=== PATIENT | female | born 1940 | race Caucasian/White ===

== ENCOUNTER → 2018-05-09 12:36 | Outpatient (CLI) | payer MEDICARE, SELFPAY | PROVIDERS: Family Provider Family Medicine; PCP Family Medicine; Visit Provider Family Medicine | DX: M81.0 Age-related osteoporosis without current pathological fracture (principal); Z78.0 Asymptomatic menopausal state; Z87.891 Personal history of nicotine dependence | CPT/HCPCS: 77080 ==

== ENCOUNTER → 2019-06-26 11:26 | Outpatient (CLI) | payer MEDICARE, SELFPAY ==
--- NOTE | 2019-06-26 | DI.RAD.S_ITS ---
PROCEDURE: XR CHEST 2V INDICATIONS: shortness of breath TECHNIQUE: 2 views of the chest were acquired. COMPARISON: None. FINDINGS: Surgical changes and devices: None. Lungs and pleura: Low lung volumes with scattered subsegmental atelectasis/scarring. . No pleural effusions or pneumothorax. Mediastinum: Mediastinal contours are normal. Heart size is normal. Bones and chest wall: No suspicious bony abnormalities. Lateral curvature of the spine. Soft tissues appear unremarkable. IMPRESSION: Low lung volumes with scattered subsegmental atelectasis/scarring. Dictated by: Igor Martinez M.D. on 06/26/2019 at 12:36 Approved by: Igor Martinez M.D. on 06/26/2019 at 12:36
== END ==
PROVIDERS: Family Provider Family Medicine; PCP Student in an Organized Health Care Education/Training Program; Referring Provider Student in an Organized Health Care Education/Training Program; Visit Provider Student in an Organized Health Care Education/Training Program
DX: R06.02 Shortness of breath (principal)
CPT/HCPCS: 71046

== ENCOUNTER → 2019-07-03 10:55 | Outpatient (CLI) | payer MEDICARE, SELFPAY ==
--- NOTE | 2019-07-03 | DI.ECHO.S_ITS ---
[facility] +---------+ : : [address] : : : : [id number] : : : : Phone: [phone] Echocardiogram Report + + :Name: BRAEDEN BARRIOS Study Date: 07/03/2019 Height: 191 in : :[facility] Weight: 61 lb : : Gender: Female BSA: 2.6 m2 : :: 1940 Age: 79 yrs BP: 165/98 mmHg: :Reason For Study: SYSTOLIC HEART FAILURE : :Ordering Physician: Sandro Mercado : :Gene Performed By: Linda Chin : :Referring: SANDRO MILLS : + + Interpretation Summary 1) Normal left ventricular size, thickness, and systolic function (EF 60-65%). 2) There are no obvious focal wall motion abnormalities noted but poor endocardial definition reduces the sensitivity for the detection of such. 3) Normal right ventricular size and function. 4) No significant valvular abnormalities. 5) No prior Echo available for comparison. Procedure: A two-dimensional transthoracic echocardiogram with color flow and Doppler was performed. There is no prior echocardiogram noted for this patient. The study quality was technically adequate. The patient was in normal sinus rhythm during the exam. Left Ventricle: The left ventricle is normal in size. There is normal left ventricular wall thickness. The ejection fraction is estimated to be 60-65%. Left ventricular systolic function is normal. There are no obvious focal wall motion abnormalities noted but poor endocardial definition reduces the sensitivity for the detection of such. Right Ventricle: The right ventricle is normal in size and function. Atria: The left atrial size is normal. Right atrial size is normal. Mitral Valve: The mitral valve is normal in structure and function. There is mild mitral annular calcification. There is trace mitral regurgitation. Aortic Valve: The aortic valve is normal in structure and function. There is no aortic valve stenosis. No aortic regurgitation is present. Tricuspid Valve: The tricuspid valve is normal in structure and function. There is a trace or physiologic amount of tricuspid regurgitation. Pulmonary artery pressures cannot be estimated because of the lack of a measurable TR jet velocity. Pulmonic Valve: The pulmonic valve is normal in structure and function. There is trace pulmonic regurgitation. Great Vessels: The aortic root is normal size. The dimensions of the ascending aorta are normal. The IVC is of normal diameter and collapses greater than 50% with a sniff. This suggests a low right atrial pressure of 3 mm Hg. Pericardium/ Pleura There is no pericardial effusion. There is no pleural effusion. MMode/2D Measurements & Calculations LVIDd: 4.3 cm LVOT diam: 2.0 cm LVIDs: 3.1 cm Ao root diam: 2.8 cm FS: 29.3 % asc Aorta Diam: 2.6 cm IVSd: 0.71 cm LVPWd: 1.0 cm LV mcgarry. diameter/BSA (cm/m^2): 1.7 LV sys. diameter/BSA (cm/m^2): 1.2 LA A2 area: 17.0 cm2 RA long axis: 5.2 cm LA A4 area: 12.9 cm2 RA area: 16.1 cm2 LA length (vol): 4.6 cm RA vol: 42.5 ml LA vol: 40.7 ml RA : 16.3 ml/m2 LA vol index: 15.6 ml/m2 IVC diam: 1.9 cm RVD1 (basal): 3.3 cm TAPSE: 2.0 cm Doppler Measurements & Calculations Ao V2 max: 146.4 cm/sec LVOT Max Asaf: 130.6 cm/sec Ao V2 mean: 97.6 cm/sec LV V1 max P.8 mmHg Ao max P.6 mmHg LV V1 VTI: 27.5 cm Ao mean P.5 mmHg LUCILLE(I,D): 2.7 cm2 Ao V2 VTI: 30.1 cm LUCILLE(V,D): 2.7 cm2 sev ratio: 0.91 LUCILLE indexed to BSA (cm^2/m^2): 1.1 MV E max asaf: 84.3 cm/sec PA V2 max: 121.2 cm/sec MV A max asaf: 91.3 cm/sec PA V2 mean: 80.8 cm/sec MV E/A: 0.92 PA mean P.0 mmHg Med Peak E' Asaf: 5.5 cm/sec PA pr(Accel): 27.6 mmHg E/E' med: 15.4 PA Accel Time: 0.14 sec Lat Peak E' Asaf: 8.3 cm/sec E/E' lat: 10.1 E/e' average: 12.8 MV dec time: 0.23 sec MV P1/2t: 66.5 msec MV P1/2t max asaf: 83.5 cm/sec SV(LVOT): 82.4 ml MVA(P1/2t): 3.3 cm2 Reading Physician:01:15 PM
== END ==
PROVIDERS: Family Provider Family Medicine; PCP Student in an Organized Health Care Education/Training Program; Referring Provider Internal Medicine Cardiovascular Disease; Visit Provider Internal Medicine Cardiovascular Disease
DX: I50.20 Unspecified systolic (congestive) heart failure (principal)
CPT/HCPCS: 93306

== ENCOUNTER → 2019-07-04 07:49 | Outpatient (CLI) | payer MEDICARE, SELFPAY ==
[2019-07-04 10:01] LABS: BUN Creatinine Ratio 26.8 (6-22); Blood Urea Nitrogen 26 mg/dL (7-17); Carbon Dioxide 28 mmol/L (22-32); Chloride 102 mmol/L (98-107); Estimated Glomerular Filt Rate 55.3 mL/min (>60); Glucose 96 mg/dL (80-110); HEMOLYSIS < 15 (0-50); Potassium 4.1 mmol/L (3.4-5.1); Sodium 138 mmol/L (137-145)
== END ==
PROVIDERS: Family Provider Family Medicine; PCP Student in an Organized Health Care Education/Training Program; Referring Provider Internal Medicine Cardiovascular Disease; Visit Provider Internal Medicine Cardiovascular Disease
DX: I10 Essential (primary) hypertension (principal); I50.20 Unspecified systolic (congestive) heart failure
CPT/HCPCS: 36415; 80048

== ENCOUNTER → 2019-10-16 11:51 | Outpatient (CLI) | payer MEDICARE, SELFPAY ==
[2019-10-16 12:49] LABS: Add Manual Diff / Slide Review NO; Basophils Absolute Auto 100 /uL (0-100); Basophils Percent Auto 0.8 % (0-2); Eosinophils Absolute Auto 100 /uL (0-450); Eosinophils Percent Auto 0.8 % (2-4); Hematocrit 28.3 % (36-46); Hemoglobin 9.1 g/dL (12.0-16.0); Lymphocytes Absolute Auto 1800 /uL (1100-4500); Lymphocytes Percent Auto 25.8 % (25-40); Mean Corpuscular HGB Conc 32.1 % (30-36); Mean Corpuscular Hemoglobin 20.9 PG (26-34); Mean Corpuscular Volume 65.3 fL (80-100); Monocytes Absolute Auto 600 /uL (0-900); Monocytes Percent Auto 8.2 % (3-14); Neutrophils Absolute Auto 4400 /uL (1500-7000); Neutrophils Percent Auto 64.4 % (50-75); Platelet Count 488 X10^3/uL (150-400); Red Blood Cell Count 4.34 X10^6/uL (4.0-5.2); Red Cell Distribution Width 18.5 % (11.6-14.8); White Blood Cell Count 6.9 X10^3/uL (4.5-11.0)
[2019-10-16 13:06] LABS: BUN Creatinine Ratio 23.2 (6-22); Blood Urea Nitrogen 23 mg/dL (7-17); Carbon Dioxide 25 mmol/L (22-32); Chloride 102 mmol/L (98-107); Cholesterol 246 mg/dL (140-199); Glucose 106 mg/dL (80-110); HEMOLYSIS < 15 (0-50); Potassium 4.6 mmol/L (3.4-5.1); Sodium 136 mmol/L (137-145); Triglycerides 123 mg/dL (35-150)
[2019-10-16 13:09] LABS: Anisocytosis 2+; Poikilocytosis 2+
[2019-10-16 13:14] LABS: HDL Cholesterol 98 mg/dL (40-60); LDL Cholesterol Calculated 123 mg/dL (<100)
== END ==
PROVIDERS: Family Provider Family Medicine; PCP Student in an Organized Health Care Education/Training Program; Referring Provider Internal Medicine Cardiovascular Disease; Visit Provider Internal Medicine Cardiovascular Disease
DX: I10 Essential (primary) hypertension (principal)
CPT/HCPCS: 36415; 80048; 80061; 85025

== ENCOUNTER → 2019-11-13 13:30 | Oncology outpatient (ONC) | payer MEDICARE, SELFPAY ==
[2019-10-16 14:10] VITALS: BP 148/77; PULSE 84; RESP 16; TEMP 36.7; O2SAT 96
[2019-10-16] MEDS: IRON SUCROSE 200 MG in SODIUM CHLORIDE 0.9% 100 ML 220 ML IV (14:20)
--- NOTE | 2019-10-16 15:41 | PC.NURSE ---
FIRST TIME IRON INFUSION: PATIENT REMAINED WITHOUT S/S OF REACTION FOR 30 MINUTES POST COMPLETION OF TRANSFUSION. SHE WAS INSTRUCTED TO CALL 911 IF S/S OF REACTION (EXPLAINED TO HER ANY SWELLING OF MOUTH, FACE, NECK, CHEST PAIN, SOB, WHEEZING, BACK PAIN, PRURITIS). PATIENT VOICED UNDERSTANDING.
[2019-10-23 13:44] VITALS: BP 151/84; PULSE 90; RESP 18; TEMP 36.7; O2SAT 99
[2019-10-23] MEDS: IRON SUCROSE 200 MG in SODIUM CHLORIDE 0.9% 100 ML 220 ML IV (13:52)
[2019-10-30] MEDS: IRON SUCROSE 200 MG in SODIUM CHLORIDE 0.9% 100 ML 220 ML IV (13:48)
[2019-10-30 13:59] VITALS: BP 141/73; PULSE 84; RESP 18; TEMP 36.7; O2SAT 97
[2019-11-06] MEDS: IRON SUCROSE 200 MG in SODIUM CHLORIDE 0.9% 100 ML 220 ML IV (13:58)
[2019-11-06 14:08] VITALS: BP 158/74; PULSE 78; RESP 16; TEMP 37.1; O2SAT 98
[2019-11-13] MEDS: IRON SUCROSE 200 MG in SODIUM CHLORIDE 0.9% 100 ML 220 ML IV (13:43)
== END ==
PROVIDERS: Family Provider Family Medicine; PCP Student in an Organized Health Care Education/Training Program; Referring Provider Student in an Organized Health Care Education/Training Program; Visit Provider Student in an Organized Health Care Education/Training Program
DX: D50.9 Iron deficiency anemia, unspecified (principal)
CPT/HCPCS: 96365; J1756

== ENCOUNTER → 2020-01-27 09:52 | Outpatient (CLI) | payer MEDICARE, SELFPAY ==
[2020-01-27 10:37] LABS: Add Manual Diff / Slide Review NO; Basophils Absolute Auto 0 /uL (0-100); Basophils Percent Auto 0.6 % (0-2); Eosinophils Absolute Auto 100 /uL (0-450); Eosinophils Percent Auto 2.1 % (2-4); Hematocrit 39.3 % (36-46); Hemoglobin 13.2 g/dL (12.0-16.0); Lymphocytes Absolute Auto 2100 /uL (1100-4500); Lymphocytes Percent Auto 31.4 % (25-40); Mean Corpuscular HGB Conc 33.7 % (30-36); Mean Corpuscular Hemoglobin 26.7 PG (26-34); Mean Corpuscular Volume 79.4 fL (80-100); Monocytes Absolute Auto 700 /uL (0-900); Monocytes Percent Auto 10.4 % (3-14); Neutrophils Absolute Auto 3800 /uL (1500-7000); Neutrophils Percent Auto 55.5 % (50-75); Platelet Count 336 X10^3/uL (150-400); Red Blood Cell Count 4.95 X10^6/uL (4.0-5.2); Red Cell Distribution Width 21.1 % (11.6-14.8); White Blood Cell Count 6.9 X10^3/uL (4.5-11.0)
[2020-01-27 10:50] LABS: Anisocytosis 2+
[2020-01-27 10:57] LABS: BUN Creatinine Ratio 20.4 (6-22); Blood Urea Nitrogen 22 mg/dL (7-17); Calcium 10.1 mg/dL (8.4-10.2); Carbon Dioxide 32 mmol/L (22-32); Chloride 102 mmol/L (98-107); Cholesterol 242 mg/dL (140-199); Estimated Glomerular Filt Rate 48.7 mL/min (>60); Glucose 99 mg/dL (80-110); HDL Cholesterol 70 mg/dL (40-60); HEMOLYSIS < 15 (0-50); LDL Cholesterol Calculated 123 mg/dL (<100); Potassium 4.4 mmol/L (3.4-5.1); Sodium 138 mmol/L (137-145); Triglycerides 243 mg/dL (35-150)
== END ==
PROVIDERS: Family Provider Family Medicine; PCP Student in an Organized Health Care Education/Training Program; Referring Provider Internal Medicine Cardiovascular Disease; Visit Provider Internal Medicine Cardiovascular Disease
DX: I10 Essential (primary) hypertension (principal)
CPT/HCPCS: 36415; 80048; 80061; 85025

== ENCOUNTER → 2020-03-02 08:18 | Outpatient (CLI) | payer MEDICARE, SELFPAY ==
[2020-03-02 10:37] LABS: COVID19 -Nasal RAPID Negative (Negative)
== END ==
PROVIDERS: PCP Student in an Organized Health Care Education/Training Program; Visit Provider Family Medicine Sleep Medicine
DX: Z11.59 Encounter for screening for other viral diseases (principal)
CPT/HCPCS: 87635; C9803

== ENCOUNTER → 2020-05-08 09:14 | Outpatient (CLI) | payer MEDICARE, SELFPAY ==
[2020-05-08 11:04] LABS: BUN Creatinine Ratio 12.3 (6-22); Blood Urea Nitrogen 10 mg/dL (7-17); Calcium 9.8 mg/dL (8.4-10.2); Carbon Dioxide 27 mmol/L (22-32); Chloride 104 mmol/L (98-107); Estimated Glomerular Filt Rate > 60.0 mL/min (>60); Glucose 99 mg/dL (80-110); HEMOLYSIS < 15 (0-50); Potassium 4.6 mmol/L (3.4-5.1); Sodium 139 mmol/L (137-145)
== END ==
PROVIDERS: PCP Student in an Organized Health Care Education/Training Program; Referring Provider Internal Medicine Cardiovascular Disease; Visit Provider Internal Medicine Cardiovascular Disease
DX: I10 Essential (primary) hypertension (principal)
CPT/HCPCS: 36415; 80048

== ENCOUNTER → 2023-10-16 08:07 | Outpatient (CLI) | payer MEDICARE, SELFPAY ==
--- NOTE | 2023-10-16 08:10 | DI.US.S_ITS ---
PROCEDURE: US SOFT TISSUE HEAD AND NECK INDICATIONS: RIGHT CLAVICLE MASS TECHNIQUE: Ultrasound the thyroid was obtained COMPARISON: None. FINDINGS: Right and left lobes of thyroid measure 4.3 x 1.8 x 2.6 cm and 4.1 x 1.6 x 1.2 cm respectively. Isthmus measures 0.3 cm in thickness. Bilateral thyroid nodules noted. Normal small lymph node adjacent to the right lobe of the thyroid noted. In the right mid thyroid, nodule 1. dominant nodule measures 2.2 x 1.5 x 2.3 cm and is wider than tall. Nodules predominantly solid, hyperechoic with smooth margins and no echogenic foci. Total points 3. Category 3. The left lower thyroid, nodule 2. Measures 0.4 x 0.4 x 0.4 cm. Wider than tall, solid and cystic, irregular margins and no echogenic foci. Total points 5. Category 4. In the left thyroid nodule 3. Measures 0.7 x 0.6 x 0.6 cm. Wider than tall, solid, isoechoic, lobulated margins and punctate echogenic foci. Total points 8. Category 5. In the left lower thyroid, nodule 4. Measures 1.0 x 1.0 x 1.4 cm. Wider than tall, predominantly solid, isoechoic, irregular margins and no echogenic foci. Total points 5. Category 4. IMPRESSION: Bilateral thyroid nodules. ACR guidelines recommend follow-up without FNA given nodule sizes Approved by: Ken Bonner M.D. on 10/16/2023 at 16:10
== END ==
PROVIDERS: PCP Family Medicine; Referring Provider Family Medicine; Visit Provider Family Medicine
DX: E04.2 Nontoxic multinodular goiter (principal); M79.89 Other specified soft tissue disorders
CPT/HCPCS: 76536

== ENCOUNTER → 2024-01-09 08:20 | Outpatient (CLI) | payer MEDICARE, SELFPAY ==
--- NOTE | 2024-01-09 | DI.US.S_ITS ---
PROCEDURE: US EXTREMITY NONVASC LOWER RT INDICATIONS: MASS BEHIND RIGHT KNEE TECHNIQUE: Real-time scanning was performed of the right knee, with image documentation. COMPARISON: None. FINDINGS: No significant sonographic abnormality is seen posterior to the right knee. No solid mass. No fluid collection. IMPRESSION: No significant sonographic abnormality at the area of clinical concern. MRI or CT could be performed for further evaluation if there is continued clinical concern. Approved by: Abimael Connors M.D. on 01/09/2024 at 21:00
== END ==
PROVIDERS: Family Provider Family Medicine; PCP Family Medicine; Referring Provider Family Medicine; Visit Provider Family Medicine
DX: R22.41 Localized swelling, mass and lump, right lower limb (principal)
CPT/HCPCS: 76882

== ENCOUNTER 2024-02-28 13:00 | Outpatient (RCR) | payer MEDICARE, SELFPAY ==
--- NOTE | 2024-01-17 11:49 | PT.OPPOC ---
Physical, Occupational & Speech Therapy At [facility] Current Diagnoses Unilateral primary osteoarthritis, right knee (01/17/24) Radiculopathy, lumbar region (01/17/24) Visit Care Team Role Provider Type Zia Zarco MD Attending Provider Physician Family Provider Primary Care Provider Referring Provider Specialty: Family Practice Address: [facility] [place], [facility] Email: [email or web address] Plan Of Care PT-OP-B Current Condition Start: 01/17/24 08:16 Freq: Status: Active Protocol: Document 01/17/24 09:46 MB (Rec: 01/17/24 10:34 MB [id number]) Current Condition History of Current Condition Onset Date A couple of weeks ago Current Complaints Left SI, hip and thigh pain History of Current Condition Pt states that she had a sudden onset of left sided pain that started a couple of weeks ago. Pt woke up with a sharp pain and called the doctor. She sleeps on her left side without pillow support. PMH includes sleep apnea and CHF. Pt had PT in the past for right knee d/t degeneration and clicking. History of right meniscal repair and painful lump posterior right knee that she was told is not a Lang's cyst. Pt is not keen on doctors and has not always followed up about things. [facility] and she has stopped d/t pain. She was trying to build up walking distance around [facility] and a couple of days later was when the pain came on. Pt lives by herself and is I. She does not have steps. Pt has had two falls in the past four years. She hurt her right ribs and bruised left face in the falls. She was walking outside. She does not have a cane or walker. She thinks she was dehydrated. Questionnaires are not pharmaceutical representative of her issues. Pt has most pain in the mornings when she goes to get OOB. She is sleeping on her right side without a pillow. Pt reports burning in anterior left thigh. Treatment Goals Patient/Caregiver Goals To decrease pain, especially in the mornings. PT-OP-T Assessment and Plan Start: 01/17/24 08:16 Freq: Status: Active Protocol: Document 01/17/24 09:46 MB (Rec: 01/17/24 10:34 MB [id number]) Physical Therapy Assessment Rehab Potential Rehabilitation Potential Fair Evaluation Complexity Number of Personal Factors/Comorbidities 1-2 Number of Body Systems Impaired 1-2 Clinical Presentation at Evaluation Evolving Impairments Impairments Activity Tolerance,Balance, Coordination,Functional Activities,Functional Mobility ,Gait,Pain,Posture,ROM, Sensation,Soft Tissue Mobility ,Strength,Transfers Goals 3 Impairment Lack of HEP Scribing Machine Operator Goal (LTG) Pt will perform progressive HEP with I include pelvic realignment, flexibility, postural, strengthening and balance exercises to improve pain and strength. LTG Duration 8 weeks 2 Impairment Evidence of imbalance Scribing Machine Operator Goal (LTG) Pt will perform WNLs on FGA to decrease fall risk. LTG Duration 8 weeks 1 Impairment Poor gait Scribing Machine Operator Goal (LTG) Pt will gait train at least 1400 feet in 6 minutes to improve community ambulation and reflect less pain with ambulation. LTG Duration 8 weeks Assessment Summary Assessment Pt is an 84 y/o female presenting with spinal and right knee changes reporting sudden onset of left sided SI area to thigh pain and burning one morning a couple of weeks ago. Pt has degenerative changes in right knee d/t meniscal tear around December 26, 2000 that she states was not convenient to treat at the time and she has had trouble with her right kn'see since that time. She has knee flexion contracture, increased Q angle and lump posterior right knee that she states Lang's cyst was r/o. Pt presents with pelvic obliquities. She would like to return to functional exercises at the [facility] 3x/wk and admits to tending to bear pain rather than follow-up for care. She is agreeable to PT participation 2x/wk for 6 weeks. She will benefit from PT to improve pelvic alignment, flexibility, balance, strength and gait. Barriers include orthopedic changes. Ed pt that no pain no gain is NOT the motto of this PT course but rather convincing body to adapt to small changes and learning better body awareness. Physical Therapy Plan Frequency and Duration Frequency of Treatment 2x/Week Duration of treatment (weeks) 8 Plan of Care Start Date 01/17/24 Plan of Care End Date 03/18/24 Therapeutic Interventions Therapeutic Interventions Balance Training,Canalithic Repositioning,Coordination Training,Gait Training,Home Exercise Program,Joint Mobilizations,Manual Therapy, Neuromuscular Re-education, Patient/Caregiver Education, Self-Care/Home Management,Soft Tissue Mobilization,Taping, Therapeutic Activities, Therapeutic Exercises Modalities Electric Stimulation,Hot Packs ,Ultrasound Next Visit Focus/Plan Next Note Type Treatment Note Next Visit Plan Review pelvic realignment exercises, initiate flexibility exercises such as yeimy stretch, hamstring stretch with AP and hip rotator stretch Manual work Progressive strengthening including gentle core awareness and progression in hook lying, gentle leg strengthening and balance strengthening, FGA and 6MWT Plan of Care Dates Plan of Care Start Date 01/17/24 Plan of Care End Date 03/18/24 Electronically Signed by: Maria Alejandra aHnkins, PT 01/17/24 9332 If you are in agreement with this Plan of Care, please return a signed and dated copy. I have reviewed this Plan of Care and certify that the skilled therapy services above are required to meet the patient?s needs. Physician Signature Date Printed Name and Credentials Clinical Instructor Signature Printed Name and Credentials
--- NOTE | 2024-01-17 11:49 | PT.OIE ---
Current Diagnoses Unilateral primary osteoarthritis, right knee (01/17/24) Radiculopathy, lumbar region (01/17/24) Past Medical History (Last Updated 02/02/21 @ 14:08 by BELEN Whitfield) Hypertension Insomnia with sleep apnea, unspecified Iron deficiency anemia chick sexer associated with adverse incidents (~09/28/20) Obstructive sleep apnea Systolic heart failure Visit Care Team Role Provider Type Zia Zarco MD Attending Provider Physician Family Provider Primary Care Provider Referring Provider Specialty: [facility] Address: [facility] [place], [address] Email: [email or web address] Initial Evaluation PT-OP-A Visit Information Start: 01/17/24 08:16 Freq: Status: Active Protocol: Document 01/17/24 09:46 MB (Rec: 01/17/24 10:34 MB [id number]) Out-Patient Physical Therapy Visit Information Visit Information Visit Type Initial Evaluation Visit Note Medicare AARP Progress note by 02/17/24 Visit Start Time 09:46 Visit Stop Time 10:26 Visit Number 1 Number of GRAINING PRESS OPERATOR Visits 0 Evaluation Information Evaluation Date 01/17/24 PT-OP-B Current Condition Start: 01/17/24 08:16 Freq: Status: Active Protocol: Document 01/17/24 09:46 MB (Rec: 01/17/24 10:34 MB [id number]) Current Condition History of Current Condition Onset Date A couple of weeks ago Current Complaints Left SI, hip and thigh pain History of Current Condition Pt states that she had a sudden onset of left sided pain that started a couple of weeks ago. Pt woke up with a sharp pain and called the doctor. She sleeps on her left side without pillow support. PMH includes sleep apnea and CHF. Pt had PT in the past for right knee d/t degeneration and clicking. History of right meniscal repair and painful lump posterior right knee that she was told is not a Lang's cyst. Pt is not keen on doctors and has not always followed up about things. [facility] and she has stopped d/t pain. She was trying to build up walking distance around [facility] and a couple of days later was when the pain came on. Pt lives by herself and is I. She does not have steps. Pt has had two falls in the past four years. She hurt her right ribs and bruised left face in the falls. She was walking outside. She does not have a cane or walker. She thinks she was dehydrated. Questionnaires are not passenger service representative of her issues. Pt has most pain in the mornings when she goes to get OOB. She is sleeping on her right side without a pillow. Pt reports burning in anterior left thigh. Treatment Goals Patient/Caregiver Goals To decrease pain, especially in the mornings. PT-OP-C Subjective Start: 01/17/24 08:16 Freq: Status: Active Protocol: Document 01/17/24 09:46 MB (Rec: 01/17/24 10:34 MB [id number]) OP-PT Subjective Patient Comments Patient Comments See history of current condition. PT-OP-G Mobility & Gait Start: 01/17/24 08:16 Freq: Status: Active Protocol: Document 01/17/24 09:46 MB (Rec: 01/17/24 10:34 MB [id number]) OP Gait Assessment Comments Gait Comments Lower limb changes on the right with increased QL, supinated foot with increased Abran angle and wide DEJA PT-OP-J Posture/Palpation/Skin Start: 01/17/24 08:16 Freq: Status: Active Protocol: Document 01/17/24 09:46 MB (Rec: 01/17/24 10:34 MB [id number]) Posture Evaluation Comments Posture Comments Standing posture with shoes donned: severe foward head and rounded shoulders with right tragus 1.5 in front of right AC joint, severe Dowager's hump, mild right thoracic convexity and overall increased thoracic kyphosis, right iliac crest is lower than the left and right knee is medially deviated/increased QL and pt reports meniscal repair, pt tends to keep right foot ER and mildly in front of left, supinated right rearfoot. Right leg functionally longer than the left in standing. Standing flexion with fingers 2 from the floor, hamstrings tight and knees bent mildly and reports right knee pain, right arm seems longer to her and reaches closer to the ground. Standing extension to 10 deg and dull ache left side and prefers flexion Standing SB B severely limited grossly 10 deg Pt supine: anteriorly rotated left innominate and stiff SI joint compared to right PT-OP-K Range of Motion Start: 01/17/24 08:16 Freq: Status: Active Protocol: Document 01/17/24 09:46 MB (Rec: 01/17/24 10:34 MB [id number]) Knee Goniometric Range of Motion Knee ROM Limitations Comments Right knee does not rest flat and presents with flexion lacking 20 deg extension passively and incresaed Q angle 15 deg PT-OP-M Strength Start: 01/17/24 08:16 Freq: Status: Active Protocol: Document 01/17/24 09:46 MB (Rec: 01/17/24 10:34 MB [id number]) Hip Strength Hip Manual Muscle Testing Left Flexion (L2) 4+ Good+ Abduction 4 Good Right Flexion (L2) 3+ Fair+ Abduction 3+ Fair+ Knee Strength Knee Manual Muscle Testing Left Flexion (S2) 4+ Good+ Extension (L3) 5 Normal Right Flexion (S2) 4 Good Extension (L3) 4+ Good+ Ankle/Foot Strength Ankle and Foot Manual Muscle Testing Bilateral Dorsiflexion (L4) 5 Normal Toe Strength Toe Manual Muscle Testing Left Great Toe Extension 5 Normal Right Great Toe Extension 5 Normal PT-OP-Q Treatments Start: 01/17/24 08:16 Freq: Status: Active Protocol: Document 01/17/24 09:46 MB (Rec: 01/17/24 10:34 MB [id number]) Therapeutic Exercises Supine Exercises Pelvic realignment exercises Supine Exercise Name HEP Side bilateral Equipment Used Blue ball Reps/Minutes 5 reps, 3 sec hold all exercises in order Comments Feet together ball squeeze, knee opp ankle iso, thigh press down iso Self-Care/Home Management Treatment Education Patient Education Body Mechanics,Home Exercise Program,Joint Protection,Pain Management,Posture Other Education Benefits of heat, log rolling, pillow between arms and legs for side sleeping, rocking knees before getting OOB PT-OP-T Assessment and Plan Start: 01/17/24 08:16 Freq: Status: Active Protocol: Document 01/17/24 09:46 MB (Rec: 01/17/24 10:34 MB [id number]) Physical Therapy Assessment Rehab Potential Rehabilitation Potential Fair Evaluation Complexity Number of Personal Factors/Comorbidities 1-2 Number of Body Systems Impaired 1-2 Clinical Presentation at Evaluation Evolving Impairments Impairments Activity Tolerance,Balance, Coordination,Functional Activities,Functional Mobility ,Gait,Pain,Posture,ROM, Sensation,Soft Tissue Mobility ,Strength,Transfers Goals 3 Impairment Lack of HEP Director Of Operations Support Goal (LTG) Pt will perform progressive HEP with I include pelvic realignment, flexibility, postural, strengthening and balance exercises to improve pain and strength. LTG Duration 8 weeks 2 Impairment Evidence of imbalance Fci Goal (LTG) Pt will perform WNLs on FGA to decrease fall risk. LTG Duration 8 weeks 1 Impairment Poor gait Fci Goal (LTG) Pt will gait train at least 1400 feet in 6 minutes to improve community ambulation and reflect less pain with ambulation. LTG Duration 8 weeks Assessment Summary Assessment Pt is an 84 y/o female presenting with spinal and right knee changes reporting sudden onset of left sided SI area to thigh pain and burning one morning a couple of weeks ago. Pt has degenerative changes in right knee d/t meniscal tear around December 26, 2000 that she states was not convenient to treat at the time and she has had trouble with her right kn'see since that time. She has knee flexion contracture, increased Q angle and lump posterior right knee that she states Lang's cyst was r/o. Pt presents with pelvic obliquities. She would like to return to functional exercises at the [facility] 3x/wk and admits to tending to bear pain rather than follow-up for care. She is agreeable to PT participation 2x/wk for 6 weeks. She will benefit from PT to improve pelvic alignment, flexibility, balance, strength and gait. Barriers include orthopedic changes. Ed pt that no pain no gain is NOT the motto of this PT course but rather convincing body to adapt to small changes and learning better body awareness. Physical Therapy Plan Frequency and Duration Frequency of Treatment 2x/Week Duration of treatment (weeks) 8 Plan of Care Start Date 01/17/24 Plan of Care End Date 03/18/24 Therapeutic Interventions Therapeutic Interventions Balance Training,Canalithic Repositioning,Coordination Training,Gait Training,Home Exercise Program,Joint Mobilizations,Manual Therapy, Neuromuscular Re-education, Patient/Caregiver Education, Self-Care/Home Management,Soft Tissue Mobilization,Taping, Therapeutic Activities, Therapeutic Exercises Modalities Electric Stimulation,Hot Packs ,Ultrasound Next Visit Focus/Plan Next Note Type Treatment Note Next Visit Plan Review pelvic realignment exercises, initiate flexibility exercises such as yeimy stretch, hamstring stretch with AP and hip rotator stretch Manual work Progressive strengthening including gentle core awareness and progression in hook lying, gentle leg strengthening and balance strengthening, FGA and 6MWT
--- NOTE | 2024-01-23 08:13 | PT.OTN ---
Current Diagnoses Unilateral primary osteoarthritis, right knee (01/23/24) Radiculopathy, lumbar region (01/23/24) Physical Therapy Treatment Note PT-OP-A Visit Information Start: 01/17/24 08:16 Freq: Status: Active Protocol: Document 01/23/24 07:28 MB (Rec: 01/23/24 08:13 MB [id number]) Out-Patient Physical Therapy Visit Information Visit Information Visit Type Treatment Note Visit Note [facility] Progress note by 02/17/24 Visit Start Time 07:28 Visit Stop Time 08:08 Visit Number 2 Number of RETIREMENT PLAN SPECIALIST Visits 0 Evaluation Information Evaluation Date 01/17/24 PT-OP-B Current Condition Start: 01/17/24 08:16 Freq: Status: Active Protocol: Document 01/17/24 09:46 MB (Rec: 01/17/24 10:34 MB [id number]) Current Condition History of Current Condition Onset Date A couple of weeks ago Current Complaints Left SI, hip and thigh pain History of Current Condition Pt states that she had a sudden onset of left sided pain that started a couple of weeks ago. Pt woke up with a sharp pain and called the doctor. She sleeps on her left side without pillow support. PMH includes sleep apnea and CHF. Pt had PT in the past for right knee d/t degeneration and clicking. History of right meniscal repair and painful lump posterior right knee that she was told is not a Lang's cyst. Pt is not keen on doctors and has not always followed up about things. She is doing functional exercises at the [facility] 3x/wk and she has stopped d/t pain. She was trying to build up walking distance around [facility] and a couple of days later was when the pain came on. Pt lives by herself and is I. She does not have steps. Pt has had two falls in the past four years. She hurt her right ribs and bruised left face in the falls. She was walking outside. She does not have a cane or walker. She thinks she was dehydrated. Questionnaires are not financial foundations representative of her issues. Pt has most pain in the mornings when she goes to get OOB. She is sleeping on her right side without a pillow. Pt reports burning in anterior left thigh. Treatment Goals Patient/Caregiver Goals To decrease pain, especially in the mornings. PT-OP-C Subjective Start: 01/17/24 08:16 Freq: Status: Active Protocol: Document 01/23/24 07:28 MB (Rec: 01/23/24 08:13 MB [id number]) OP-PT Subjective Patient Comments Patient Comments Pt states that she started sleeping on her back with a pillow and is moving her legs before getting OOB and she is tad bit better in the mornings . Pain in the day is much better. Pelvic realignment exercises are okay. PT-OP-G Mobility & Gait Start: 01/17/24 08:16 Freq: Status: Active Protocol: Document 01/17/24 09:46 MB (Rec: 01/17/24 10:34 MB [id number]) OP Gait Assessment Comments Gait Comments Lower limb changes on the right with increased QL, supinated foot with increased Abran angle and wide DEJA PT-OP-J Posture/Palpation/Skin Start: 01/17/24 08:16 Freq: Status: Active Protocol: Document 01/17/24 09:46 MB (Rec: 01/17/24 10:34 MB [id number]) Posture Evaluation Comments Posture Comments Standing posture with shoes donned: severe foward head and rounded shoulders with right tragus 1.5 in front of right AC joint, severe Dowager's hump, mild right thoracic convexity and overall increased thoracic kyphosis, right iliac crest is lower than the left and right knee is medially deviated/increased QL and pt reports meniscal repair, pt tends to keep right foot ER and mildly in front of left, supinated right rearfoot. Right leg functionally longer than the left in standing. Standing flexion with fingers 2 from the floor, hamstrings tight and knees bent mildly and reports right knee pain, right arm seems longer to her and reaches closer to the ground. Standing extension to 10 deg and dull ache left side and prefers flexion Standing SB B severely limited grossly 10 deg Pt supine: anteriorly rotated left innominate and stiff SI joint compared to right PT-OP-K Range of Motion Start: 01/17/24 08:16 Freq: Status: Active Protocol: Document 01/17/24 09:46 MB (Rec: 01/17/24 10:34 MB [id number]) Knee Goniometric Range of Motion Knee ROM Limitations Comments Right knee does not rest flat and presents with flexion lacking 20 deg extension passively and incresaed Q angle 15 deg PT-OP-M Strength Start: 01/17/24 08:16 Freq: Status: Active Protocol: Document 01/17/24 09:46 MB (Rec: 01/17/24 10:34 MB [id number]) Hip Strength Hip Manual Muscle Testing Left Flexion (L2) 4+ Good+ Abduction 4 Good Right Flexion (L2) 3+ Fair+ Abduction 3+ Fair+ Knee Strength Knee Manual Muscle Testing Left Flexion (S2) 4+ Good+ Extension (L3) 5 Normal Right Flexion (S2) 4 Good Extension (L3) 4+ Good+ Ankle/Foot Strength Ankle and Foot Manual Muscle Testing Bilateral Dorsiflexion (L4) 5 Normal Toe Strength Toe Manual Muscle Testing Left Great Toe Extension 5 Normal Right Great Toe Extension 5 Normal PT-OP-Q Treatments Start: 01/17/24 08:16 Freq: Status: Active Protocol: Document 01/23/24 07:28 MB (Rec: 01/23/24 08:13 MB [id number]) Therapeutic Exercises Supine Exercises Log rolling Supine Exercise Name HEP Comments Con't to ed and practice as pt tends not to perform Hamstring stretch with AP Supine Exercise Name HEP Side bilateral Reps/Minutes 30 APs Comments Towel behind thigh Asher stretch Supine Exercise Name HEP Side bilateral Equipment Used Towel behind knee that is at chest, ed can use pillow under hips Reps/Minutes 30-45 sec hold Comments Opposite knee to chest Pelvic realignment exercises Supine Exercise Name HEP Side bilateral Equipment Used Blue ball Reps/Minutes 5 reps, 3 sec hold all exercises in order Comments Feet together ball squeeze, knee opp ankle iso, thigh press down iso Manual Therapy Treatment Consent Patient gave verbal consent for manual Yes treatment Other Other Manual Treatments Pt supine with head and legs supported: STM and positional release B PFs, hamstrings, TFL , hip rotators and QL PT-OP-T Assessment and Plan Start: 01/17/24 08:16 Freq: Status: Active Protocol: Document 01/23/24 07:28 MB (Rec: 01/23/24 08:13 MB [id number]) Physical Therapy Assessment Rehab Potential Rehabilitation Potential Fair Evaluation Complexity Number of Personal Factors/Comorbidities 1-2 Number of Body Systems Impaired 1-2 Clinical Presentation at Evaluation Evolving Impairments Impairments Activity Tolerance,Balance, Coordination,Functional Activities,Functional Mobility ,Gait,Pain,Posture,ROM, Sensation,Soft Tissue Mobility ,Strength,Transfers Goals 3 Impairment Lack of HEP Hasher Operator Goal (LTG) Pt will perform progressive HEP with I include pelvic realignment, flexibility, postural, strengthening and balance exercises to improve pain and strength. LTG Duration 8 weeks 2 Impairment Evidence of imbalance [facility] Goal (LTG) Pt will perform WNLs on FGA to decrease fall risk. LTG Duration 8 weeks 1 Impairment Poor gait [facility] Goal (LTG) Pt will gait train at least 1400 feet in 6 minutes to improve community ambulation and reflect less pain with ambulation. LTG Duration 8 weeks Assessment Summary Assessment Progressed gentle flexibility and manual work today. Recommend review asher stretch and hamstring with AP next treatment session and add hip rotator stretch. Ongoing manual work and gentle core, hip and balance progression. Right knee has a lot of changes. Physical Therapy Plan Frequency and Duration Frequency of Treatment 2x/Week Duration of treatment (weeks) 8 Plan of Care Start Date 01/17/24 Plan of Care End Date 03/18/24 Therapeutic Interventions Therapeutic Interventions Balance Training,Canalithic Repositioning,Coordination Training,Gait Training,Home Exercise Program,Joint Mobilizations,Manual Therapy, Neuromuscular Re-education, Patient/Caregiver Education, Self-Care/Home Management,Soft Tissue Mobilization,Taping, Therapeutic Activities, Therapeutic Exercises Modalities Electric Stimulation,Hot Packs ,Ultrasound Next Visit Focus/Plan Next Note Type Treatment Note Next Visit Plan Hip rotator stretch for HEP Manual work Progressive strengthening including gentle core awareness and progression in hook lying, gentle leg strengthening and balance strengthening, FGA and 6MWT
--- NOTE | 2024-01-26 16:44 | PT.OTN ---
Current Diagnoses Unilateral primary osteoarthritis, right knee (01/26/24) Radiculopathy, lumbar region (01/26/24) Physical Therapy Treatment Note PT-OP-A Visit Information Start: 01/17/24 08:16 Freq: Status: Active Protocol: Document 01/26/24 12:38 AB (Rec: 01/26/24 14:27 AB [id number]) Out-Patient Physical Therapy Visit Information Visit Information Visit Type Treatment Note Visit Note Medicare AARP Progress note by 02/17/24 Visit Start Time 13:02 Visit Stop Time 13:48 Visit Number 3 Number of DRESS CAP MAKER Visits 1 Evaluation Information Evaluation Date 01/17/24 PT-OP-B Current Condition Start: 01/17/24 08:16 Freq: Status: Active Protocol: Document 01/17/24 09:46 MB (Rec: 01/17/24 10:34 MB [id number]) Current Condition History of Current Condition Onset Date A couple of weeks ago Current Complaints Left SI, hip and thigh pain History of Current Condition Pt states that she had a sudden onset of left sided pain that started a couple of weeks ago. Pt woke up with a sharp pain and called the doctor. She sleeps on her left side without pillow support. PMH includes sleep apnea and CHF. Pt had PT in the past for right knee d/t degeneration and clicking. History of right meniscal repair and painful lump posterior right knee that she was told is not a Lang's cyst. Pt is not keen on doctors and has not always followed up about things. She is doing functional exercises at the [facility] 3x/wk and she has stopped d/t pain. She was trying to build up walking distance around [facility] and a couple of days later was when the pain came on. Pt lives by herself and is I. She does not have steps. Pt has had two falls in the past four years. She hurt her right ribs and bruised left face in the falls. She was walking outside. She does not have a cane or walker. She thinks she was dehydrated. Questionnaires are not real estate representative of her issues. Pt has most pain in the mornings when she goes to get OOB. She is sleeping on her right side without a pillow. Pt reports burning in anterior left thigh. Treatment Goals Patient/Caregiver Goals To decrease pain, especially in the mornings. PT-OP-C Subjective Start: 01/17/24 08:16 Freq: Status: Active Protocol: Document 01/26/24 12:38 AB (Rec: 01/26/24 14:27 AB [id number]) OP-PT Subjective Patient Comments Patient Comments Patient reports she doesn't do the exercises when she comes here and when she is out and about. Patient reports performing the exercises twice a week. Patient reports she has no pain but is taking Tylenol, comments getting up in the morning is painful. PT-OP-E Functional Tests Start: 01/26/24 16:35 Freq: Status: Active Protocol: Document 01/26/24 12:38 AB (Rec: 01/26/24 16:36 AB [id number]) Functional Tests 6 Minute Walk Test Distance 1024.4 feet Device Used no device Comments supervision PT-OP-G Mobility & Gait Start: 01/17/24 08:16 Freq: Status: Active Protocol: Document 01/17/24 09:46 MB (Rec: 01/17/24 10:34 MB [id number]) OP Gait Assessment Comments Gait Comments Lower limb changes on the right with increased QL, supinated foot with increased Abran angle and wide DEJA PT-OP-J Posture/Palpation/Skin Start: 01/17/24 08:16 Freq: Status: Active Protocol: Document 01/17/24 09:46 MB (Rec: 01/17/24 10:34 MB [id number]) Posture Evaluation Comments Posture Comments Standing posture with shoes donned: severe foward head and rounded shoulders with right tragus 1.5 in front of right AC joint, severe Dowager's hump, mild right thoracic convexity and overall increased thoracic kyphosis, right iliac crest is lower than the left and right knee is medially deviated/increased QL and pt reports meniscal repair, pt tends to keep right foot ER and mildly in front of left, supinated right rearfoot. Right leg functionally longer than the left in standing. Standing flexion with fingers 2 from the floor, hamstrings tight and knees bent mildly and reports right knee pain, right arm seems longer to her and reaches closer to the ground. Standing extension to 10 deg and dull ache left side and prefers flexion Standing SB B severely limited grossly 10 deg Pt supine: anteriorly rotated left innominate and stiff SI joint compared to right PT-OP-K Range of Motion Start: 01/17/24 08:16 Freq: Status: Active Protocol: Document 01/17/24 09:46 MB (Rec: 01/17/24 10:34 MB [id number]) Knee Goniometric Range of Motion Knee ROM Limitations Comments Right knee does not rest flat and presents with flexion lacking 20 deg extension passively and incresaed Q angle 15 deg PT-OP-M Strength Start: 01/17/24 08:16 Freq: Status: Active Protocol: Document 01/17/24 09:46 MB (Rec: 01/17/24 10:34 MB [id number]) Hip Strength Hip Manual Muscle Testing Left Flexion (L2) 4+ Good+ Abduction 4 Good Right Flexion (L2) 3+ Fair+ Abduction 3+ Fair+ Knee Strength Knee Manual Muscle Testing Left Flexion (S2) 4+ Good+ Extension (L3) 5 Normal Right Flexion (S2) 4 Good Extension (L3) 4+ Good+ Ankle/Foot Strength Ankle and Foot Manual Muscle Testing Bilateral Dorsiflexion (L4) 5 Normal Toe Strength Toe Manual Muscle Testing Left Great Toe Extension 5 Normal Right Great Toe Extension 5 Normal PT-OP-Q Treatments Start: 01/17/24 08:16 Freq: Status: Active Protocol: Document 01/26/24 12:38 AB (Rec: 01/26/24 14:27 AB [id number]) Therapeutic Exercises Supine Exercises Log rolling Supine Exercise Name HEP Reps/Minutes to left and right X 5 total Comments Verbal cues one step Asher stretch Supine Exercise Name HEP Side bilateral Equipment Used Towel behind knee that is at chest, Reps/Minutes one minute hold Comments Opposite knee to chest Pelvic realignment exercises Supine Exercise Name HEP Side bilateral Equipment Used Blue ball Reps/Minutes 5 reps, 3 sec hold all exercises in order Comments Feet together ball squeeze, knee opp ankle iso, thigh press down iso Manual Therapy Treatment Soft Tissue Mobilization left hip Body Location glute piriformis area hip flexor at groin Mobilization Type Cross-Friction,Rolling Intensity/Depth Moderate Body Position Hooklying Comments and sidelying prior to modified Asher stretch PT-OP-T Assessment and Plan Start: 01/17/24 08:16 Freq: Status: Active Protocol: Document 01/26/24 12:38 AB (Rec: 01/26/24 14:27 AB [id number]) Physical Therapy Assessment Goals 3 Impairment Lack of HEP Organic Section Technical Lead Goal (LTG) Pt will perform progressive HEP with I include pelvic realignment, flexibility, postural, strengthening and balance exercises to improve pain and strength. LTG Duration 8 weeks 2 Impairment Evidence of imbalance Senior Care Goal (LTG) Pt will perform WNLs on FGA to decrease fall risk. LTG Duration 8 weeks 1 Impairment Poor gait Senior Care Goal (LTG) Pt will gait train at least 1400 feet in 6 minutes to improve community ambulation and reflect less pain with ambulation. LTG Duration 8 weeks Assessment Summary Assessment Patient reports she feels it in hip, but not pain end of session. Patient ed importance of performing HEP for functional outcome and progression of plan. Physical Therapy Plan Frequency and Duration Frequency of Treatment 2x/Week Duration of treatment (weeks) 8 Plan of Care Start Date 01/17/24 Plan of Care End Date 03/18/24 Next Visit Focus/Plan Next Note Type Treatment Note Next Visit Plan Hip rotator stretch for HEP Manual work Progressive strengthening including gentle core awareness and progression in hook lying, gentle leg strengthening and balance strengthening, FGA and
--- NOTE | 2024-01-29 08:55 | PT.OTN ---
Current Diagnoses Unilateral primary osteoarthritis, right knee (01/29/24) Radiculopathy, lumbar region (01/29/24) Physical Therapy Treatment Note PT-OP-A Visit Information Start: 01/17/24 08:16 Freq: Status: Active Protocol: Document 01/29/24 08:16 MB (Rec: 01/29/24 08:51 MB [id number]) Out-Patient Physical Therapy Visit Information Visit Information Visit Type Treatment Note Visit Note Medicare AARP Progress note by 02/17/24 Visit Start Time 08:16 Visit Stop Time 08:54 Visit Number 4 Number of MEDICAL STAFF MANAGER Visits 0 Evaluation Information Evaluation Date 01/17/24 PT-OP-B Current Condition Start: 01/17/24 08:16 Freq: Status: Active Protocol: Document 01/17/24 09:46 MB (Rec: 01/17/24 10:34 MB [id number]) Current Condition History of Current Condition Onset Date A couple of weeks ago Current Complaints Left SI, hip and thigh pain History of Current Condition Pt states that she had a sudden onset of left sided pain that started a couple of weeks ago. Pt woke up with a sharp pain and called the doctor. She sleeps on her left side without pillow support. PMH includes sleep apnea and CHF. Pt had PT in the past for right knee d/t degeneration and clicking. History of right meniscal repair and painful lump posterior right knee that she was told is not a Lang's cyst. Pt is not keen on doctors and has not always followed up about things. She is doing functional exercises at the [facility] 3x/wk and she has stopped d/t pain. She was trying to build up walking distance around [facility] and a couple of days later was when the pain came on. Pt lives by herself and is I. She does not have steps. Pt has had two falls in the past four years. She hurt her right ribs and bruised left face in the falls. She was walking outside. She does not have a cane or walker. She thinks she was dehydrated. Questionnaires are not ict sales representative of her issues. Pt has most pain in the mornings when she goes to get OOB. She is sleeping on her right side without a pillow. Pt reports burning in anterior left thigh. Treatment Goals Patient/Caregiver Goals To decrease pain, especially in the mornings. PT-OP-C Subjective Start: 01/17/24 08:16 Freq: Status: Active Protocol: Document 01/29/24 08:16 MB (Rec: 01/29/24 08:51 MB [id number]) OP-PT Subjective Patient Comments Patient Comments Pt states that the pain is better in the day and con't with pain upon getting up. It is the same level. PT-OP-E Functional Tests Start: 01/26/24 16:35 Freq: Status: Active Protocol: Document 01/26/24 12:38 AB (Rec: 01/26/24 16:36 AB [id number]) Functional Tests 6 Minute Walk Test Distance 1024.4 feet Device Used no device Comments supervision PT-OP-G Mobility & Gait Start: 01/17/24 08:16 Freq: Status: Active Protocol: Document 01/17/24 09:46 MB (Rec: 01/17/24 10:34 MB [id number]) OP Gait Assessment Comments Gait Comments Lower limb changes on the right with increased QL, supinated foot with increased Abran angle and wide DEJA PT-OP-J Posture/Palpation/Skin Start: 01/17/24 08:16 Freq: Status: Active Protocol: Document 01/17/24 09:46 MB (Rec: 01/17/24 10:34 MB [id number]) Posture Evaluation Comments Posture Comments Standing posture with shoes donned: severe foward head and rounded shoulders with right tragus 1.5 in front of right AC joint, severe Dowager's hump, mild right thoracic convexity and overall increased thoracic kyphosis, right iliac crest is lower than the left and right knee is medially deviated/increased QL and pt reports meniscal repair, pt tends to keep right foot ER and mildly in front of left, supinated right rearfoot. Right leg functionally longer than the left in standing. Standing flexion with fingers 2 from the floor, hamstrings tight and knees bent mildly and reports right knee pain, right arm seems longer to her and reaches closer to the ground. Standing extension to 10 deg and dull ache left side and prefers flexion Standing SB B severely limited grossly 10 deg Pt supine: anteriorly rotated left innominate and stiff SI joint compared to right PT-OP-K Range of Motion Start: 01/17/24 08:16 Freq: Status: Active Protocol: Document 01/17/24 09:46 MB (Rec: 01/17/24 10:34 MB [id number]) Knee Goniometric Range of Motion Knee ROM Limitations Comments Right knee does not rest flat and presents with flexion lacking 20 deg extension passively and incresaed Q angle 15 deg PT-OP-M Strength Start: 01/17/24 08:16 Freq: Status: Active Protocol: Document 01/17/24 09:46 MB (Rec: 01/17/24 10:34 MB [id number]) Hip Strength Hip Manual Muscle Testing Left Flexion (L2) 4+ Good+ Abduction 4 Good Right Flexion (L2) 3+ Fair+ Abduction 3+ Fair+ Knee Strength Knee Manual Muscle Testing Left Flexion (S2) 4+ Good+ Extension (L3) 5 Normal Right Flexion (S2) 4 Good Extension (L3) 4+ Good+ Ankle/Foot Strength Ankle and Foot Manual Muscle Testing Bilateral Dorsiflexion (L4) 5 Normal Toe Strength Toe Manual Muscle Testing Left Great Toe Extension 5 Normal Right Great Toe Extension 5 Normal PT-OP-Q Treatments Start: 01/17/24 08:16 Freq: Status: Active Protocol: Document 01/29/24 08:16 MB (Rec: 01/29/24 08:51 MB [id number]) Therapeutic Exercises Supine Exercises Log rolling Comments Performed throughout treatment when up and down off mat Asher stretch Supine Exercise Name HEP Side bilateral Reps/Minutes 30 sec Comments Opposite knee to chest Manual Therapy Treatment Consent Patient gave verbal consent for manual Yes treatment Other Other Manual Treatments Pt sidelying: STM and rib recoiling for QL, thoracic lumbar paraspinals and STM left TFL, glute min and vastus lateralis. TrP treatment left QL and iliopsoas, TFL and glute min. STM left rectus attachment and MWM given tension. TrP rectus femoris but not over previous ecchymosis area PT-OP-T Assessment and Plan Start: 01/17/24 08:16 Freq: Status: Active Protocol: Document 01/29/24 08:16 MB (Rec: 01/29/24 08:51 MB [id number]) Physical Therapy Assessment Rehab Potential Rehabilitation Potential Fair Evaluation Complexity Number of Personal Factors/Comorbidities 1-2 Number of Body Systems Impaired 1-2 Clinical Presentation at Evaluation Evolving Impairments Impairments Activity Tolerance,Balance, Coordination,Functional Activities,Functional Mobility ,Gait,Pain,Posture,ROM, Sensation,Soft Tissue Mobility ,Strength,Transfers Goals 3 Impairment Lack of HEP Operations Technician Goal (LTG) Pt will perform progressive HEP with I include pelvic realignment, flexibility, postural, strengthening and balance exercises to improve pain and strength. LTG Duration 8 weeks 2 Impairment Evidence of imbalance [facility] Goal (LTG) Pt will perform WNLs on FGA to decrease fall risk. LTG Duration 8 weeks 1 Impairment Poor gait Operations Technician Goal (LTG) Pt will gait train at least 1400 feet in 6 minutes to improve community ambulation and reflect less pain with ambulation. LTG Duration 8 weeks Assessment Summary Assessment More manual work today and will monitor how pt feels. See plan for next treatments for next treatment date. Physical Therapy Plan Frequency and Duration Frequency of Treatment 2x/Week Duration of treatment (weeks) 8 Plan of Care Start Date 01/17/24 Plan of Care End Date 03/18/24 Therapeutic Interventions Therapeutic Interventions Balance Training,Canalithic Repositioning,Coordination Training,Gait Training,Home Exercise Program,Joint Mobilizations,Manual Therapy, Neuromuscular Re-education, Patient/Caregiver Education, Self-Care/Home Management,Soft Tissue Mobilization,Taping, Therapeutic Activities, Therapeutic Exercises Modalities Electric Stimulation,Hot Packs ,Ultrasound Next Visit Focus/Plan Next Note Type Treatment Note Next Visit Plan Hip rotator stretch for HEP Manual work Progressive strengthening including gentle core awareness and progression in hook lying, consider hip abduction clam in hooklying on back with knees bent and band for resistance, gentle leg strengthening and balance strengthening in standing, FGA
--- NOTE | 2024-01-30 12:05 | PT-OP ANOTE ---
PT calls pt and she states she is feeling better today. PT ed pt that if she is having pain in the morning, she might wish to consider her mattress and sleeping on another bed in the house. She states that she is sleeping on a 20 y/o mattress and is willing to try sleeping on another bet in the house. Con't PT per plan.
--- NOTE | 2024-01-31 10:29 | PT.OTN ---
Current Diagnoses Unilateral primary osteoarthritis, right knee (01/31/24) Radiculopathy, lumbar region (01/31/24) Physical Therapy Treatment Note PT-OP-A Visit Information Start: 01/17/24 08:16 Freq: Status: Active Protocol: Document 01/31/24 09:45 MB (Rec: 01/31/24 10:29 MB [id number]) Out-Patient Physical Therapy Visit Information Visit Information Visit Type Treatment Note Visit Note Medicare AARP Progress note by 02/17/24 Visit Start Time 09:45 Visit Stop Time 10:25 Visit Number 5 Number of SAMPLE MAKER ORIGINAL Visits 0 Evaluation Information Evaluation Date 01/17/24 PT-OP-B Current Condition Start: 01/17/24 08:16 Freq: Status: Active Protocol: Document 01/17/24 09:46 MB (Rec: 01/17/24 10:34 MB [id number]) Current Condition History of Current Condition Onset Date A couple of weeks ago Current Complaints Left SI, hip and thigh pain History of Current Condition Pt states that she had a sudden onset of left sided pain that started a couple of weeks ago. Pt woke up with a sharp pain and called the doctor. She sleeps on her left side without pillow support. PMH includes sleep apnea and CHF. Pt had PT in the past for right knee d/t degeneration and clicking. History of right meniscal repair and painful lump posterior right knee that she was told is not a Lang's cyst. Pt is not keen on doctors and has not always followed up about things. She is doing functional exercises at the [facility] 3x/wk and she has stopped d/t pain. She was trying to build up walking distance around [facility] and a couple of days later was when the pain came on. Pt lives by herself and is I. She does not have steps. Pt has had two falls in the past four years. She hurt her right ribs and bruised left face in the falls. She was walking outside. She does not have a cane or walker. She thinks she was dehydrated. Questionnaires are not medical sales representative of her issues. Pt has most pain in the mornings when she goes to get OOB. She is sleeping on her right side without a pillow. Pt reports burning in anterior left thigh. Treatment Goals Patient/Caregiver Goals To decrease pain, especially in the mornings. PT-OP-C Subjective Start: 01/17/24 08:16 Freq: Status: Active Protocol: Document 01/31/24 09:45 MB (Rec: 01/31/24 10:29 MB [id number]) OP-PT Subjective Patient Comments Patient Comments Pt states that as of today, no real changes in pain. She figured out how to roll in the bed balled up and it helps. She took out some foam that was covering the mattress and it might have helped. She has not yet cleaned off second bed in the house and getting a new mattress isn't a good option right now. PT-OP-E Functional Tests Start: 01/26/24 16:35 Freq: Status: Active Protocol: Document 01/26/24 12:38 AB (Rec: 01/26/24 16:36 AB [id number]) Functional Tests 6 Minute Walk Test Distance 1024.4 feet Device Used no device Comments supervision PT-OP-G Mobility & Gait Start: 01/17/24 08:16 Freq: Status: Active Protocol: Document 01/17/24 09:46 MB (Rec: 01/17/24 10:34 MB [id number]) OP Gait Assessment Comments Gait Comments Lower limb changes on the right with increased QL, supinated foot with increased Abran angle and wide DEJA PT-OP-J Posture/Palpation/Skin Start: 01/17/24 08:16 Freq: Status: Active Protocol: Document 01/17/24 09:46 MB (Rec: 01/17/24 10:34 MB [id number]) Posture Evaluation Comments Posture Comments Standing posture with shoes donned: severe foward head and rounded shoulders with right tragus 1.5 in front of right AC joint, severe Dowager's hump, mild right thoracic convexity and overall increased thoracic kyphosis, right iliac crest is lower than the left and right knee is medially deviated/increased QL and pt reports meniscal repair, pt tends to keep right foot ER and mildly in front of left, supinated right rearfoot. Right leg functionally longer than the left in standing. Standing flexion with fingers 2 from the floor, hamstrings tight and knees bent mildly and reports right knee pain, right arm seems longer to her and reaches closer to the ground. Standing extension to 10 deg and dull ache left side and prefers flexion Standing SB B severely limited grossly 10 deg Pt supine: anteriorly rotated left innominate and stiff SI joint compared to right PT-OP-K Range of Motion Start: 01/17/24 08:16 Freq: Status: Active Protocol: Document 01/17/24 09:46 MB (Rec: 01/17/24 10:34 MB [id number]) Knee Goniometric Range of Motion Knee ROM Limitations Comments Right knee does not rest flat and presents with flexion lacking 20 deg extension passively and incresaed Q angle 15 deg PT-OP-M Strength Start: 01/17/24 08:16 Freq: Status: Active Protocol: Document 01/17/24 09:46 MB (Rec: 01/17/24 10:34 MB [id number]) Hip Strength Hip Manual Muscle Testing Left Flexion (L2) 4+ Good+ Abduction 4 Good Right Flexion (L2) 3+ Fair+ Abduction 3+ Fair+ Knee Strength Knee Manual Muscle Testing Left Flexion (S2) 4+ Good+ Extension (L3) 5 Normal Right Flexion (S2) 4 Good Extension (L3) 4+ Good+ Ankle/Foot Strength Ankle and Foot Manual Muscle Testing Bilateral Dorsiflexion (L4) 5 Normal Toe Strength Toe Manual Muscle Testing Left Great Toe Extension 5 Normal Right Great Toe Extension 5 Normal PT-OP-Q Treatments Start: 01/17/24 08:16 Freq: Status: Active Protocol: Document 01/31/24 09:45 MB (Rec: 01/31/24 10:29 MB [id number]) Cardio Equipment Recumbent Elliptical (Biodex) Duration (Minutes) 10 Resistance 3 Seat Position 8 Therapeutic Exercises Supine Exercises Hip rotator stretch Supine Exercise Name Knees bent Side bilateral Equipment Used Towel behind left knee when stretching right Reps/Minutes 1 rep each leg Comments Performed better with feet down and not up to chest Log rolling Comments Practiced again today, and pt requires cues and CGA Self-Care/Home Management Treatment Education Caregiver Education Pt asks about lump on the back of her right leg and PT palpates again and it feels firm and is painful to touch, is about the size of a kiwi, ed pt to speak with doctor about it. She states she was told it is not a Lang's cyst when she had it checked in the past. Ed pt about the benefits of gentle exercises like NuStep to help knee and hip and where she might do that and she will [facility]'t with [facility] and will not perform any exercise that increases pain PT-OP-T Assessment and Plan Start: 01/17/24 08:16 Freq: Status: Active Protocol: Document 01/31/24 09:45 MB (Rec: 01/31/24 10:29 MB [id number]) Physical Therapy Assessment Rehab Potential Rehabilitation Potential Fair Evaluation Complexity Number of Personal Factors/Comorbidities 1-2 Number of Body Systems Impaired 1-2 Clinical Presentation at Evaluation Evolving Impairments Impairments Activity Tolerance,Balance, Coordination,Functional Activities,Functional Mobility ,Gait,Pain,Posture,ROM, Sensation,Soft Tissue Mobility ,Strength,Transfers Goals 3 Impairment Lack of HEP Mcfp Goal (LTG) Pt will perform progressive HEP with I include pelvic realignment, flexibility, postural, strengthening and balance exercises to improve pain and strength. LTG Duration 8 weeks 2 Impairment Evidence of imbalance Mcfp Goal (LTG) Pt will perform WNLs on FGA to decrease fall risk. LTG Duration 8 weeks 1 Impairment Poor gait Fruit Room Hand Goal (LTG) Pt will gait train at least 1400 feet in 6 minutes to improve community ambulation and reflect less pain with ambulation. LTG Duration 8 weeks Assessment Summary Assessment Night time pain when she gets up to toilet con't to be the biggest complaint as well as pain in the morning and this may be degenerative/arthritic or mattress type situation and she is working on the mattress situation. Unsure how much PT will affect this complaint but will con't to work on education, flexibility , manual work and strengthening. Pt does point to anterior left hip as pain area that she has at night and with getting up and so hip OA could be a major issue. Overall, pt feels that she is better during the day with getting up and walking. Pt with B LE edema and she reports CHF and she usually wears compression socks. Responds well to Biodex today. Physical Therapy Plan Frequency and Duration Frequency of Treatment 2x/Week Duration of treatment (weeks) 8 Plan of Care Start Date 01/17/24 Plan of Care End Date 03/18/24 Therapeutic Interventions Therapeutic Interventions Balance Training,Canalithic Repositioning,Coordination Training,Gait Training,Home Exercise Program,Joint Mobilizations,Manual Therapy, Neuromuscular Re-education, Patient/Caregiver Education, Self-Care/Home Management,Soft Tissue Mobilization,Taping, Therapeutic Activities, Therapeutic Exercises Modalities Electric Stimulation,Hot Packs ,Ultrasound Other Referrals/Consults Referrals/Consults Recommended Consider orthopedic assessment for left hip Next Visit Focus/Plan Next Note Type Treatment Note Next Visit Plan Biodex before treatment for warm-up. Progressive strengthening including gentle core awareness and progression in hook lying, consider hip abduction clam in hooklying on back with knees bent and band for resistance, gentle leg strengthening and balance strengthening in standing, FGA
--- NOTE | 2024-02-07 10:27 | PT.OTN ---
Current Diagnoses Unilateral primary osteoarthritis, right knee (02/07/24) Radiculopathy, lumbar region (02/07/24) Physical Therapy Treatment Note PT-OP-A Visit Information Start: 01/17/24 08:16 Freq: Status: Active Protocol: Document 02/07/24 09:43 MB (Rec: 02/07/24 10:26 MB [id number]) Out-Patient Physical Therapy Visit Information Visit Information Visit Type Treatment Note Visit Note Medicare AARP Progress note by 02/17/24 Visit Start Time 09:43 Visit Stop Time 10:23 Visit Number 6 Number of DIRECTOR OF GIFT PLANNING Visits 0 Evaluation Information Evaluation Date 01/17/24 PT-OP-B Current Condition Start: 01/17/24 08:16 Freq: Status: Active Protocol: Document 01/17/24 09:46 MB (Rec: 01/17/24 10:34 MB [id number]) Current Condition History of Current Condition Onset Date A couple of weeks ago Current Complaints Left SI, hip and thigh pain History of Current Condition Pt states that she had a sudden onset of left sided pain that started a couple of weeks ago. Pt woke up with a sharp pain and called the doctor. She sleeps on her left side without pillow support. PMH includes sleep apnea and CHF. Pt had PT in the past for right knee d/t degeneration and clicking. History of right meniscal repair and painful lump posterior right knee that she was told is not a Lang's cyst. Pt is not keen on doctors and has not always followed up about things. She is doing functional exercises at the [facility] 3x/wk and she has stopped d/t pain. She was trying to build up walking distance around [facility] and a couple of days later was when the pain came on. Pt lives by herself and is I. She does not have steps. Pt has had two falls in the past four years. She hurt her right ribs and bruised left face in the falls. She was walking outside. She does not have a cane or walker. She thinks she was dehydrated. Questionnaires are not sales representative door to door of her issues. Pt has most pain in the mornings when she goes to get OOB. She is sleeping on her right side without a pillow. Pt reports burning in anterior left thigh. Treatment Goals Patient/Caregiver Goals To decrease pain, especially in the mornings. PT-OP-C Subjective Start: 01/17/24 08:16 Freq: Status: Active Protocol: Document 02/07/24 09:43 MB (Rec: 02/07/24 10:26 MB [id number]) OP-PT Subjective Patient Comments Patient Comments Pt states that overall, her pain is a little better and she has reduced her Tylenol. The pain appears to have plateaued and she con't to wake up at 4 a.m. to go to the BR and it hurts to move first thing and then she stays up. The walk to the BR is painful. Pt did not go to her exercise on Monday and she cannot remember why not. PT-OP-E Functional Tests Start: 01/26/24 16:35 Freq: Status: Active Protocol: Document 01/26/24 12:38 AB (Rec: 01/26/24 16:36 AB [id number]) Functional Tests 6 Minute Walk Test Distance 1024.4 feet Device Used no device Comments supervision PT-OP-G Mobility & Gait Start: 01/17/24 08:16 Freq: Status: Active Protocol: Document 01/17/24 09:46 MB (Rec: 01/17/24 10:34 MB [id number]) OP Gait Assessment Comments Gait Comments Lower limb changes on the right with increased QL, supinated foot with increased Abran angle and wide DEJA PT-OP-J Posture/Palpation/Skin Start: 01/17/24 08:16 Freq: Status: Active Protocol: Document 01/17/24 09:46 MB (Rec: 01/17/24 10:34 MB [id number]) Posture Evaluation Comments Posture Comments Standing posture with shoes donned: severe foward head and rounded shoulders with right tragus 1.5 in front of right AC joint, severe Dowager's hump, mild right thoracic convexity and overall increased thoracic kyphosis, right iliac crest is lower than the left and right knee is medially deviated/increased QL and pt reports meniscal repair, pt tends to keep right foot ER and mildly in front of left, supinated right rearfoot. Right leg functionally longer than the left in standing. Standing flexion with fingers 2 from the floor, hamstrings tight and knees bent mildly and reports right knee pain, right arm seems longer to her and reaches closer to the ground. Standing extension to 10 deg and dull ache left side and prefers flexion Standing SB B severely limited grossly 10 deg Pt supine: anteriorly rotated left innominate and stiff SI joint compared to right PT-OP-K Range of Motion Start: 01/17/24 08:16 Freq: Status: Active Protocol: Document 01/17/24 09:46 MB (Rec: 01/17/24 10:34 MB [id number]) Knee Goniometric Range of Motion Knee ROM Limitations Comments Right knee does not rest flat and presents with flexion lacking 20 deg extension passively and incresaed Q angle 15 deg PT-OP-M Strength Start: 01/17/24 08:16 Freq: Status: Active Protocol: Document 01/17/24 09:46 MB (Rec: 01/17/24 10:34 MB [id number]) Hip Strength Hip Manual Muscle Testing Left Flexion (L2) 4+ Good+ Abduction 4 Good Right Flexion (L2) 3+ Fair+ Abduction 3+ Fair+ Knee Strength Knee Manual Muscle Testing Left Flexion (S2) 4+ Good+ Extension (L3) 5 Normal Right Flexion (S2) 4 Good Extension (L3) 4+ Good+ Ankle/Foot Strength Ankle and Foot Manual Muscle Testing Bilateral Dorsiflexion (L4) 5 Normal Toe Strength Toe Manual Muscle Testing Left Great Toe Extension 5 Normal Right Great Toe Extension 5 Normal PT-OP-Q Treatments Start: 01/17/24 08:16 Freq: Status: Active Protocol: Document 02/07/24 09:43 MB (Rec: 02/07/24 10:26 MB [id number]) Cardio Equipment Recumbent Elliptical (BiodRkylin) Duration (Minutes) 10 Resistance 3 Seat Position 8 Therapeutic Exercises Supine Exercises Gentle core progression Supine Exercise Name HEP, Set position abd draw in and pelvic tilt Side bilateral Reps/Minutes Several reps for training Comments Abd draw in, pelvic til, knee rocking, HS, mini march, knee fall out Sitting Exercises Thoracic rotation Sitting Exercise Name HEP Side bilateral Comments 10 reps each side Manual Therapy Treatment Consent Patient gave verbal consent for manual Yes treatment Other Other Manual Treatments Pt supine with head and legs supported: Left gastroc and medial hamstrings, vastus lateralis STM, left TFL PT-OP-T Assessment and Plan Start: 01/17/24 08:16 Freq: Status: Active Protocol: Document 02/07/24 09:43 MB (Rec: 02/07/24 10:26 MB [id number]) Physical Therapy Assessment Rehab Potential Rehabilitation Potential Fair Evaluation Complexity Number of Personal Factors/Comorbidities 1-2 Number of Body Systems Impaired 1-2 Clinical Presentation at Evaluation Evolving Impairments Impairments Activity Tolerance,Balance, Coordination,Functional Activities,Functional Mobility ,Gait,Pain,Posture,ROM, Sensation,Soft Tissue Mobility ,Strength,Transfers Goals 3 Impairment Lack of HEP Senior Living Goal (LTG) Pt will perform progressive HEP with I include pelvic realignment, flexibility, postural, strengthening and balance exercises to improve pain and strength. LTG Duration 8 weeks 2 Impairment Evidence of imbalance Adolescent Coordinator Goal (LTG) Pt will perform WNLs on FGA to decrease fall risk. LTG Duration 8 weeks 1 Impairment Poor gait Adolescent Coordinator Goal (LTG) Pt will gait train at least 1400 feet in 6 minutes to improve community ambulation and reflect less pain with ambulation. LTG Duration 8 weeks Assessment Summary Assessment Similar, night time pain when she gets up to toilet con't to be the biggest complaint as well as pain in the morning and this may be degenerative/ arthritic or mattress type situation and she is working on the mattress situation. Unsure how much PT will affect this complaint but will con't to work on education, flexibility, manual work and strengthening. Pt does point to anterior left hip as pain area that she has at night and with getting up and so hip OA could be a major issue. Pain is mostly focused in left groin area now. Initiated gentle core training and this is challenging for pt today. Physical Therapy Plan Frequency and Duration Frequency of Treatment 2x/Week Duration of treatment (weeks) 8 Plan of Care Start Date 01/17/24 Plan of Care End Date 03/18/24 Therapeutic Interventions Therapeutic Interventions Balance Training,Canalithic Repositioning,Coordination Training,Gait Training,Home Exercise Program,Joint Mobilizations,Manual Therapy, Neuromuscular Re-education, Patient/Caregiver Education, Self-Care/Home Management,Soft Tissue Mobilization,Taping, Therapeutic Activities, Therapeutic Exercises Modalities Electric Stimulation,Hot Packs ,Ultrasound Other Referrals/Consults Referrals/Consults Recommended Consider orthopedic assessment for left hip Next Visit Focus/Plan Next Note Type Treatment Note Next Visit Plan Biodex before treatment for warm-up. Review gentle core progression, consider hip abduction clam in hooklying on back with knees bent and band for resistance, gentle leg strengthening and balance strengthening in standing, FGA
--- NOTE | 2024-02-09 09:31 | PT.OTN ---
Current Diagnoses Unilateral primary osteoarthritis, right knee (02/09/24) Radiculopathy, lumbar region (02/09/24) Physical Therapy Treatment Note PT-OP-A Visit Information Start: 01/17/24 08:16 Freq: Status: Active Protocol: Document 02/09/24 08:07 AB (Rec: 02/09/24 09:29 AB [id number]) Out-Patient Physical Therapy Visit Information Visit Information Visit Type Treatment Note Visit Note Medicare AARP Progress note by 02/17/24 Visit Start Time 08:17 Visit Stop Time 09:16 Visit Number 7 Number of STAGE ELECTRICIAN Visits 1 Evaluation Information Evaluation Date 01/17/24 PT-OP-B Current Condition Start: 01/17/24 08:16 Freq: Status: Active Protocol: Document 01/17/24 09:46 MB (Rec: 01/17/24 10:34 MB [id number]) Current Condition History of Current Condition Onset Date A couple of weeks ago Current Complaints Left SI, hip and thigh pain History of Current Condition Pt states that she had a sudden onset of left sided pain that started a couple of weeks ago. Pt woke up with a sharp pain and called the doctor. She sleeps on her left side without pillow support. PMH includes sleep apnea and CHF. Pt had PT in the past for right knee d/t degeneration and clicking. History of right meniscal repair and painful lump posterior right knee that she was told is not a Lang's cyst. Pt is not keen on doctors and has not always followed up about things. She is doing functional exercises at the [facility] 3x/wk and she has stopped d/t pain. She was trying to build up walking distance around [facility] and a couple of days later was when the pain came on. Pt lives by herself and is I. She does not have steps. Pt has had two falls in the past four years. She hurt her right ribs and bruised left face in the falls. She was walking outside. She does not have a cane or walker. She thinks she was dehydrated. Questionnaires are not technology sales representative of her issues. Pt has most pain in the mornings when she goes to get OOB. She is sleeping on her right side without a pillow. Pt reports burning in anterior left thigh. Treatment Goals Patient/Caregiver Goals To decrease pain, especially in the mornings. PT-OP-C Subjective Start: 01/17/24 08:16 Freq: Status: Active Protocol: Document 02/09/24 08:07 AB (Rec: 02/09/24 09:29 AB [id number]) OP-PT Subjective Patient Comments Patient Comments Patient reports pain when getting up in the morning and at night persists. Patient reports she took pain medication this morning, comments pain is now on right hip also, but not as intense as on the left when this started. Patient reports no pain ambulating into session without device. PT-OP-E Functional Tests Start: 01/26/24 16:35 Freq: Status: Active Protocol: Document 02/09/24 08:07 AB (Rec: 02/09/24 09:30 AB [id number]) Functional Tests Functional Gait Assessment Score 23 Functional Gait Assessment Impairment 20 to <40% Impaired (Score 19- Rating 24) PT-OP-G Mobility & Gait Start: 01/17/24 08:16 Freq: Status: Active Protocol: Document 01/17/24 09:46 MB (Rec: 01/17/24 10:34 MB [id number]) OP Gait Assessment Comments Gait Comments Lower limb changes on the right with increased QL, supinated foot with increased Abran angle and wide DEJA PT-OP-J Posture/Palpation/Skin Start: 01/17/24 08:16 Freq: Status: Active Protocol: Document 01/17/24 09:46 MB (Rec: 01/17/24 10:34 MB [id number]) Posture Evaluation Comments Posture Comments Standing posture with shoes donned: severe foward head and rounded shoulders with right tragus 1.5 in front of right AC joint, severe Dowager's hump, mild right thoracic convexity and overall increased thoracic kyphosis, right iliac crest is lower than the left and right knee is medially deviated/increased QL and pt reports meniscal repair, pt tends to keep right foot ER and mildly in front of left, supinated right rearfoot. Right leg functionally longer than the left in standing. Standing flexion with fingers 2 from the floor, hamstrings tight and knees bent mildly and reports right knee pain, right arm seems longer to her and reaches closer to the ground. Standing extension to 10 deg and dull ache left side and prefers flexion Standing SB B severely limited grossly 10 deg Pt supine: anteriorly rotated left innominate and stiff SI joint compared to right PT-OP-K Range of Motion Start: 01/17/24 08:16 Freq: Status: Active Protocol: Document 01/17/24 09:46 MB (Rec: 01/17/24 10:34 MB [id number]) Knee Goniometric Range of Motion Knee ROM Limitations Comments Right knee does not rest flat and presents with flexion lacking 20 deg extension passively and incresaed Q angle 15 deg PT-OP-M Strength Start: 01/17/24 08:16 Freq: Status: Active Protocol: Document 01/17/24 09:46 MB (Rec: 01/17/24 10:34 MB [id number]) Hip Strength Hip Manual Muscle Testing Left Flexion (L2) 4+ Good+ Abduction 4 Good Right Flexion (L2) 3+ Fair+ Abduction 3+ Fair+ Knee Strength Knee Manual Muscle Testing Left Flexion (S2) 4+ Good+ Extension (L3) 5 Normal Right Flexion (S2) 4 Good Extension (L3) 4+ Good+ Ankle/Foot Strength Ankle and Foot Manual Muscle Testing Bilateral Dorsiflexion (L4) 5 Normal Toe Strength Toe Manual Muscle Testing Left Great Toe Extension 5 Normal Right Great Toe Extension 5 Normal PT-OP-Q Treatments Start: 01/17/24 08:16 Freq: Status: Active Protocol: Document 02/09/24 08:07 AB (Rec: 02/09/24 09:29 AB [id number]) Cardio Equipment Recumbent Elliptical (Biodex) Duration (Minutes) 5 Resistance 1,3 Seat Position 7 Therapeutic Exercises Supine Exercises Gentle core progression Supine Exercise Name Review HEP, Set position abd draw in and pelvic tilt Side bilateral Reps/Minutes X 5 each Comments Abd draw in, pelvic til, knee rocking, HS, mini march, knee fall out Hip rotator stretch Supine Exercise Name Knees bent Side bilateral Reps/Minutes 1 rep each leg Hamstring stretch with AP Supine Exercise Name HEP review Side bilateral Reps/Minutes 30 sec APs X2 Comments VC to hold full 30 sec Asher stretch Supine Exercise Name HEP review Patient ed trial of hot pack at home prior to stretch Side bilateral Reps/Minutes 30 sec X 2 each LE Comments Opposite knee to chest Pelvic realignment exercises Supine Exercise Name HEP review, pt ed to perform in order Side bilateral Equipment Used Blue ball Reps/Minutes 5 reps, 3 sec hold all exercises in order Comments Feet together ball squeeze, knee opp ankle iso, thigh press down iso PT-OP-T Assessment and Plan Start: 01/17/24 08:16 Freq: Status: Active Protocol: Document 02/09/24 08:07 AB (Rec: 02/09/24 09:29 AB [id number]) Physical Therapy Assessment Goals 3 Impairment Lack of HEP Group Home Goal (LTG) Pt will perform progressive HEP with I include pelvic realignment, flexibility, postural, strengthening and balance exercises to improve pain and strength. LTG Duration 8 weeks 2 Impairment Evidence of imbalance Group Home Goal (LTG) Pt will perform WNLs on FGA to decrease fall risk. LTG Duration 8 weeks 1 Impairment Poor gait Road Train Driver Goal (LTG) Pt will gait train at least 1400 feet in 6 minutes to improve community ambulation and reflect less pain with ambulation. LTG Duration 8 weeks Assessment Summary Assessment Chela rates left hip pain 5/10 ambulating out of session, reports having difficulty tad hip flexor stretch at home. Patient reports she does use heat at home and advised trial of HP to hip prior to stretch . Good return demonstration for abdominal drawing in ex. FGA 23. Physical Therapy Plan Frequency and Duration Frequency of Treatment 2x/Week Duration of treatment (weeks) 8 Plan of Care Start Date 01/17/24 Plan of Care End Date 03/18/24 Next Visit Focus/Plan Next Note Type Progress Note Next Visit Plan Biodex before treatment for warm-up. Consider hip abduction clam in hooklying on back with knees bent and band for resistance, gentle leg strengthening and balance strengthening in standing. Possibly trial of STM to right HS, hip flexors and piriformis/Glute prior to stretch and pelvic realignment . [id number]
--- NOTE | 2024-02-14 13:20 | PT.OTN ---
Current Diagnoses Unilateral primary osteoarthritis, right knee (02/14/24) Radiculopathy, lumbar region (02/14/24) Physical Therapy Treatment Note PT-OP-A Visit Information Start: 01/17/24 08:16 Freq: Status: Active Protocol: Document 02/14/24 08:08 AB (Rec: 02/14/24 13:20 AB [id number]) Out-Patient Physical Therapy Visit Information Visit Information Visit Type Treatment Note Visit Note Medicare AARP Progress note by 02/17/24 Visit Start Time 08:15 Visit Stop Time 09:00 Visit Number 8 Number of DIRECTOR OF PLAYER PERSONNEL Visits 2 Evaluation Information Evaluation Date 01/17/24 PT-OP-B Current Condition Start: 01/17/24 08:16 Freq: Status: Active Protocol: Document 01/17/24 09:46 MB (Rec: 01/17/24 10:34 MB [id number]) Current Condition History of Current Condition Onset Date A couple of weeks ago Current Complaints Left SI, hip and thigh pain History of Current Condition Pt states that she had a sudden onset of left sided pain that started a couple of weeks ago. Pt woke up with a sharp pain and called the doctor. She sleeps on her left side without pillow support. PMH includes sleep apnea and CHF. Pt had PT in the past for right knee d/t degeneration and clicking. History of right meniscal repair and painful lump posterior right knee that she was told is not a Lang's cyst. Pt is not keen on doctors and has not always followed up about things. She is doing functional exercises at the [facility] 3x/wk and she has stopped d/t pain. She was trying to build up walking distance around [facility] and a couple of days later was when the pain came on. Pt lives by herself and is I. She does not have steps. Pt has had two falls in the past four years. She hurt her right ribs and bruised left face in the falls. She was walking outside. She does not have a cane or walker. She thinks she was dehydrated. Questionnaires are not data entry representative of her issues. Pt has most pain in the mornings when she goes to get OOB. She is sleeping on her right side without a pillow. Pt reports burning in anterior left thigh. Treatment Goals Patient/Caregiver Goals To decrease pain, especially in the mornings. PT-OP-C Subjective Start: 01/17/24 08:16 Freq: Status: Active Protocol: Document 02/14/24 08:08 AB (Rec: 02/14/24 13:20 AB [id number]) OP-PT Subjective Patient Comments Patient Comments Patient reports she is much better, easier getting up at night. Patient reports there is an ache during the day, but it is manageable. Patient reports she is now only taking Tylenol at night, nothing during the day and is able to walk better. Patient reports the first step hurts in the groin when she first gets up. PT-OP-E Functional Tests Start: 01/26/24 16:35 Freq: Status: Active Protocol: Document 02/09/24 08:07 AB (Rec: 02/09/24 09:30 AB [id number]) Functional Tests Functional Gait Assessment Score 23 Functional Gait Assessment Impairment 20 to <40% Impaired (Score 19- Rating 24) PT-OP-G Mobility & Gait Start: 01/17/24 08:16 Freq: Status: Active Protocol: Document 01/17/24 09:46 MB (Rec: 01/17/24 10:34 MB [id number]) OP Gait Assessment Comments Gait Comments Lower limb changes on the right with increased QL, supinated foot with increased Abran angle and wide DEJA PT-OP-J Posture/Palpation/Skin Start: 01/17/24 08:16 Freq: Status: Active Protocol: Document 01/17/24 09:46 MB (Rec: 01/17/24 10:34 MB [id number]) Posture Evaluation Comments Posture Comments Standing posture with shoes donned: severe foward head and rounded shoulders with right tragus 1.5 in front of right AC joint, severe Dowager's hump, mild right thoracic convexity and overall increased thoracic kyphosis, right iliac crest is lower than the left and right knee is medially deviated/increased QL and pt reports meniscal repair, pt tends to keep right foot ER and mildly in front of left, supinated right rearfoot. Right leg functionally longer than the left in standing. Standing flexion with fingers 2 from the floor, hamstrings tight and knees bent mildly and reports right knee pain, right arm seems longer to her and reaches closer to the ground. Standing extension to 10 deg and dull ache left side and prefers flexion Standing SB B severely limited grossly 10 deg Pt supine: anteriorly rotated left innominate and stiff SI joint compared to right PT-OP-K Range of Motion Start: 01/17/24 08:16 Freq: Status: Active Protocol: Document 01/17/24 09:46 MB (Rec: 01/17/24 10:34 MB [id number]) Knee Goniometric Range of Motion Knee ROM Limitations Comments Right knee does not rest flat and presents with flexion lacking 20 deg extension passively and incresaed Q angle 15 deg PT-OP-M Strength Start: 01/17/24 08:16 Freq: Status: Active Protocol: Document 01/17/24 09:46 MB (Rec: 01/17/24 10:34 MB [id number]) Hip Strength Hip Manual Muscle Testing Left Flexion (L2) 4+ Good+ Abduction 4 Good Right Flexion (L2) 3+ Fair+ Abduction 3+ Fair+ Knee Strength Knee Manual Muscle Testing Left Flexion (S2) 4+ Good+ Extension (L3) 5 Normal Right Flexion (S2) 4 Good Extension (L3) 4+ Good+ Ankle/Foot Strength Ankle and Foot Manual Muscle Testing Bilateral Dorsiflexion (L4) 5 Normal Toe Strength Toe Manual Muscle Testing Left Great Toe Extension 5 Normal Right Great Toe Extension 5 Normal PT-OP-Q Treatments Start: 01/17/24 08:16 Freq: Status: Active Protocol: Document 02/14/24 08:08 AB (Rec: 02/14/24 13:20 AB [id number]) Cardio Equipment Recumbent Elliptical ([employer]) Duration (Minutes) 5 Resistance 1 Seat Position 8 Therapeutic Exercises Supine Exercises hooklying clamshell Supine Exercise Name HEP Resistance level 2 teal band Reps/Minutes X10 without hold and one one minute hold Comments Verbal cues Hip rotator stretch Supine Exercise Name Knees bent Side bilateral Reps/Minutes 1 rep each leg Hamstring stretch with AP Supine Exercise Name HEP review Side bilateral Reps/Minutes 30 sec APs X20 Comments VC to hold full 30 sec Asher stretch Supine Exercise Name HEP review Patient ed trial of hot pack at home prior to stretch Side bilateral Reps/Minutes 30 sec X 1 each LE Pelvic realignment exercises Supine Exercise Name HEP review, pt ed to perform in order Side bilateral Equipment Used Blue ball Reps/Minutes 5 reps, 3 sec hold all exercises in order Comments Feet together ball squeeze, knee opp ankle iso, thigh press down iso Manual Therapy Treatment Consent Patient gave verbal consent for manual Yes treatment Soft Tissue Mobilization left hip Body Location glute piriformis area hip flexor at groin into HS proximally Mobilization Type Cross-Friction,Rolling Intensity/Depth Moderate Body Position Hooklying Comments and sidelying prior to modified Asher stretch PT-OP-T Assessment and Plan Start: 01/17/24 08:16 Freq: Status: Active Protocol: Document 02/14/24 08:08 AB (Rec: 02/14/24 13:20 AB [id number]) Physical Therapy Assessment Goals 3 Impairment Lack of HEP Penitentiary Goal (LTG) Pt will perform progressive HEP with I include pelvic realignment, flexibility, postural, strengthening and balance exercises to improve pain and strength. LTG Duration 8 weeks 2 Impairment Evidence of imbalance Import Dispatcher Goal (LTG) Pt will perform WNLs on FGA to decrease fall risk. LTG Duration 8 weeks 1 Impairment Poor gait Penitentiary Goal (LTG) Pt will gait train at least 1400 feet in 6 minutes to improve community ambulation and reflect less pain with ambulation. LTG Duration 8 weeks Assessment Summary Assessment Chela reports the left hip feels heavy end of session ambulating out of session without device. Chela verbalizes she would like to return to walking, but does not feel like she should start outdoors. Patient advised to start with 5 min walking in home. Physical Therapy Plan Frequency and Duration Frequency of Treatment 2x/Week Duration of treatment (weeks) 8 Plan of Care Start Date 01/17/24 Plan of Care End Date 03/18/24 Next Visit Focus/Plan Next Note Type Progress Note Next Visit Plan Biodex before treatment for warm-up. Assess tad to GE addition of hip abduction clam in hooklying on back with knees bent and band for resistance, gentle leg strengthening and balance strengthening in standing. Possibly trial of STM to right HS, hip flexors and piriformis/Glute prior to stretch and pelvic realignment . Review seated thoracic rotation.
--- NOTE | 2024-02-21 13:47 | PT.OTN ---
Current Diagnoses Unilateral primary osteoarthritis, right knee (02/21/24) Radiculopathy, lumbar region (02/21/24) Physical Therapy Treatment Note PT-OP-A Visit Information Start: 01/17/24 08:16 Freq: Status: Active Protocol: Document 02/21/24 13:03 MB (Rec: 02/21/24 13:47 MB [id number]) Out-Patient Physical Therapy Visit Information Visit Information Visit Type Progress Note Visit Note Medicare AARP Progress note by 02/17/24 Visit Start Time 13:03 Visit Stop Time 13:43 Visit Number 9 Number of CLAIMS COORDINATOR Visits 0 Evaluation Information Evaluation Date 01/17/24 PT-OP-B Current Condition Start: 01/17/24 08:16 Freq: Status: Active Protocol: Document 01/17/24 09:46 MB (Rec: 01/17/24 10:34 MB [id number]) Current Condition History of Current Condition Onset Date A couple of weeks ago Current Complaints Left SI, hip and thigh pain History of Current Condition Pt states that she had a sudden onset of left sided pain that started a couple of weeks ago. Pt woke up with a sharp pain and called the doctor. She sleeps on her left side without pillow support. PMH includes sleep apnea and CHF. Pt had PT in the past for right knee d/t degeneration and clicking. History of right meniscal repair and painful lump posterior right knee that she was told is not a Lang's cyst. Pt is not keen on doctors and has not always followed up about things. She is doing functional exercises at the [facility] 3x/wk and she has stopped d/t pain. She was trying to build up walking distance around [facility] and a couple of days later was when the pain came on. Pt lives by herself and is I. She does not have steps. Pt has had two falls in the past four years. She hurt her right ribs and bruised left face in the falls. She was walking outside. She does not have a cane or walker. She thinks she was dehydrated. Questionnaires are not sales service representative of her issues. Pt has most pain in the mornings when she goes to get OOB. She is sleeping on her right side without a pillow. Pt reports burning in anterior left thigh. Treatment Goals Patient/Caregiver Goals To decrease pain, especially in the mornings. PT-OP-C Subjective Start: 01/17/24 08:16 Freq: Status: Active Protocol: Document 02/21/24 13:03 MB (Rec: 02/21/24 13:47 MB [id number]) OP-PT Subjective Patient Comments Patient Comments Pt states that she feels she is making progress but she occ has tingling on lateral left leg and the leg jumps as she is falling asleep. Pain in the morning is better. She is taking less Tylenol. Her legs are more swollen than they were in the past and this is comparable to prior to pain. PT-OP-E Functional Tests Start: 01/26/24 16:35 Freq: Status: Active Protocol: Document 02/09/24 08:07 AB (Rec: 02/09/24 09:30 AB [id number]) Functional Tests Functional Gait Assessment Score 23 Functional Gait Assessment Impairment 20 to <40% Impaired (Score 19- Rating 24) PT-OP-G Mobility & Gait Start: 01/17/24 08:16 Freq: Status: Active Protocol: Document 01/17/24 09:46 MB (Rec: 01/17/24 10:34 MB [id number]) OP Gait Assessment Comments Gait Comments Lower limb changes on the right with increased QL, supinated foot with increased Abran angle and wide DEJA PT-OP-J Posture/Palpation/Skin Start: 01/17/24 08:16 Freq: Status: Active Protocol: Document 01/17/24 09:46 MB (Rec: 01/17/24 10:34 MB [id number]) Posture Evaluation Comments Posture Comments Standing posture with shoes donned: severe foward head and rounded shoulders with right tragus 1.5 in front of right AC joint, severe Dowager's hump, mild right thoracic convexity and overall increased thoracic kyphosis, right iliac crest is lower than the left and right knee is medially deviated/increased QL and pt reports meniscal repair, pt tends to keep right foot ER and mildly in front of left, supinated right rearfoot. Right leg functionally longer than the left in standing. Standing flexion with fingers 2 from the floor, hamstrings tight and knees bent mildly and reports right knee pain, right arm seems longer to her and reaches closer to the ground. Standing extension to 10 deg and dull ache left side and prefers flexion Standing SB B severely limited grossly 10 deg Pt supine: anteriorly rotated left innominate and stiff SI joint compared to right PT-OP-K Range of Motion Start: 01/17/24 08:16 Freq: Status: Active Protocol: Document 01/17/24 09:46 MB (Rec: 01/17/24 10:34 MB [id number]) Knee Goniometric Range of Motion Knee ROM Limitations Comments Right knee does not rest flat and presents with flexion lacking 20 deg extension passively and incresaed Q angle 15 deg PT-OP-M Strength Start: 01/17/24 08:16 Freq: Status: Active Protocol: Document 01/17/24 09:46 MB (Rec: 01/17/24 10:34 MB [id number]) Hip Strength Hip Manual Muscle Testing Left Flexion (L2) 4+ Good+ Abduction 4 Good Right Flexion (L2) 3+ Fair+ Abduction 3+ Fair+ Knee Strength Knee Manual Muscle Testing Left Flexion (S2) 4+ Good+ Extension (L3) 5 Normal Right Flexion (S2) 4 Good Extension (L3) 4+ Good+ Ankle/Foot Strength Ankle and Foot Manual Muscle Testing Bilateral Dorsiflexion (L4) 5 Normal Toe Strength Toe Manual Muscle Testing Left Great Toe Extension 5 Normal Right Great Toe Extension 5 Normal PT-OP-Q Treatments Start: 01/17/24 08:16 Freq: Status: Active Protocol: Document 02/21/24 13:03 MB (Rec: 02/21/24 13:47 MB [id number]) Cardio Equipment Recumbent Elliptical ([employer]olingo) Duration (Minutes) 15 Resistance 2 Seat Position 9 Therapeutic Exercises Other Exercises HEP review Comments Verbal review of all HEP on progress note date Gait Training Gait Activity Gait training during treatment Comments Gait pattern with wide DEJA today and pt reports trouble with edema 6MWT Comments Pt gait trains 1231 feet in 6 minutes and does does not have pain with this Neuro Re-Education Treatment Balance Activities FGA Comments Wide DEJA and pt c/o B edema in legs from CHF that is worse now and this affects scoring, antalgic stepping on steps with 1-2 rails, worse descend d/t right knee pain PT-OP-T Assessment and Plan Start: 01/17/24 08:16 Freq: Status: Active Protocol: Document 02/21/24 13:03 MB (Rec: 02/21/24 13:47 MB [id number]) Physical Therapy Assessment Goals 3 Impairment Lack of HEP Half-Way Goal (LTG) Pt will perform progressive HEP with I include pelvic realignment, flexibility, postural, strengthening and balance exercises to improve pain and strength. 02/21/24: Pt is performing exercises and they are going well LTG Duration Progressed 2 Impairment Evidence of imbalance Half-Way Goal (LTG) Pt will perform WNLs on FGA to decrease fall risk. 02/21/24: FGA score today LTG Duration Progressed 1 Impairment Poor gait Half-Way Goal (LTG) Pt will gait train at least 1400 feet in 6 minutes to improve community ambulation and reflect less pain with ambulation. 02/21/24: Pt gait trains 1231 feet in 6 minutes LTG Duration Progressed Assessment Summary Assessment Pt is progressing towards all PT goals. Will add LE strengthening and balance exercises next treatment and d /c pt. Ed pt to talk with Dr. Zarco about CHF symptoms (LE edema) and if ongoing tingling right lateral leg. Physical Therapy Plan Frequency and Duration Frequency of Treatment 2x/Week Duration of treatment (weeks) 8 Plan of Care Start Date 01/17/24 Plan of Care End Date 03/18/24 Next Visit Focus/Plan Next Note Type Discharge Summary Next Visit Plan Biodex before treatment for warm-up. Gentle strengthening to trial for HEP to include standing heel raises and static balance such as tandem or partial tandem, try SLS, hip abduction and extension in standing with band and sitting ankle DF and eversion with band looped around forefeet, both feet going together.
--- NOTE | 2024-02-28 13:23 | PT.OTN ---
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 Pt woke up with a sharp pain and called the doctor. She sleeps on her left side without pillow support. PMH includes sleep apnea and CHF. Pt had PT in the past for right knee d/t degeneration and clicking. History of right meniscal repair and painful lump posterior right knee that she was told is not a Lang's cyst. Pt is not keen on doctors and has not always followed up about things. She is doing functional exercises at the [facility] 3x/wk and she has stopped d/t pain. She was trying to build up walking distance around [facility] and a couple of days later was when the pain came on. Pt lives by herself and is I. She does not have steps. Pt has had two falls in the past four years. She hurt her right ribs and bruised left face in the falls. She was walking outside. She does not have a cane or walker. She thinks she was dehydrated. Questionnaires are not asset protection representative of her issues. Pt has most pain in the mornings when she goes to get OOB. She is sleeping on her right side without a pillow. Pt reports burning in anterior left thigh. Treatment Goals Patient/Caregiver Goals To decrease pain, especially in the mornings. PT-OP-C Subjective Start: 01/17/24 08:16 Freq: Status: Active Protocol: Document 02/28/24 13:00 MB (Rec: 02/28/24 13:22 MB [id number]) OP-PT Subjective Patient Comments Patient Comments Pt reports that she con't to have tingling on left lateral leg and cramping in left groin area and she is asking about neuralgia. She reports burning sensation and needles. She is concerned about B LE edema. PT-OP-E Functional Tests Start: 01/26/24 16:35 Freq: Status: Active Protocol: Document 02/09/24 08:07 AB (Rec: 02/09/24 09:30 AB [id number]) Functional Tests Functional Gait Assessment Score 23 Functional Gait Assessment Impairment 20 to <40% Impaired (Score 19- Rating 24) PT-OP-G Mobility & Gait Start: 01/17/24 08:16 Freq: Status: Active Protocol: Document 01/17/24 09:46 MB (Rec: 01/17/24 10:34 MB [id number]) OP Gait Assessment Comments Gait Comments Lower limb changes on the right with increased QL, supinated foot with increased Abran angle and wide DEJA PT-OP-J Posture/Palpation/Skin Start: 01/17/24 08:16 Freq: Status: Active Protocol: Document 01/17/24 09:46 MB (Rec: 01/17/24 10:34 MB [id number]) Posture Evaluation Comments Posture Comments Standing posture with shoes donned: severe foward head and rounded shoulders with right tragus 1.5 in front of right AC joint, severe Dowager's hump, mild right thoracic convexity and overall increased thoracic kyphosis, right iliac crest is lower than the left and right knee is medially deviated/increased QL and pt reports meniscal repair, pt tends to keep right foot ER and mildly in front of left, supinated right rearfoot. Right leg functionally longer than the left in standing. Standing flexion with fingers 2 from the floor, hamstrings tight and knees bent mildly and reports right knee pain, right arm seems longer to her and reaches closer to the ground. Standing extension to 10 deg and dull ache left side and prefers flexion Standing SB B severely limited grossly 10 deg Pt supine: anteriorly rotated left innominate and stiff SI joint compared to right PT-OP-K Range of Motion Start: 01/17/24 08:16 Freq: Status: Active Protocol: Document 01/17/24 09:46 MB (Rec: 01/17/24 10:34 MB [id number]) Knee Goniometric Range of Motion Knee ROM Limitations Comments Right knee does not rest flat and presents with flexion lacking 20 deg extension passively and incresaed Q angle 15 deg PT-OP-M Strength Start: 01/17/24 08:16 Freq: Status: Active Protocol: Document 01/17/24 09:46 MB (Rec: 01/17/24 10:34 MB [id number]) Hip Strength Hip Manual Muscle Testing Left Flexion (L2) 4+ Good+ Abduction 4 Good Right Flexion (L2) 3+ Fair+ Abduction 3+ Fair+ Knee Strength Knee Manual Muscle Testing Left Flexion (S2) 4+ Good+ Extension (L3) 5 Normal Right Flexion (S2) 4 Good Extension (L3) 4+ Good+ Ankle/Foot Strength Ankle and Foot Manual Muscle Testing Bilateral Dorsiflexion (L4) 5 Normal Toe Strength Toe Manual Muscle Testing Left Great Toe Extension 5 Normal Right Great Toe Extension 5 Normal PT-OP-Q Treatments Start: 01/17/24 08:16 Freq: Status: Active Protocol: Document 02/28/24 13:00 MB (Rec: 02/28/24 13:22 MB [id number]) Cardio Equipment Recumbent Elliptical (Biodex) Duration (Minutes) 8 Resistance 1 Seat Position 9 Gait Training Gait Activity Stair training Comments Antalgic stepping with alternating stepping ascend and lead right foot descend step to step given right knee issues, use of rail Self-Care/Home Management Treatment Education Other Education See assessment recommendations , recommend return to doctor regarding symptoms and edema management that may help symptoms PT-OP-T Assessment and Plan Start: 01/17/24 08:16 Freq: Status: Active Protocol: Document 02/28/24 13:00 MB (Rec: 02/28/24 13:22 MB [id number]) Physical Therapy Assessment Goals 3 Impairment Lack of HEP Alf Goal (LTG) Pt will perform progressive HEP with I include pelvic realignment, flexibility, postural, strengthening and balance exercises to improve pain and strength. 02/21/24: Pt is performing exercises and they are going well LTG Duration Progressed 2 Impairment Evidence of imbalance Alf Goal (LTG) Pt will perform WNLs on FGA to decrease fall risk. 02/21/24: 19/30 FGA score today LTG Duration Progressed 1 Impairment Poor gait Alf Goal (LTG) Pt will gait train at least 1400 feet in 6 minutes to improve community ambulation and reflect less pain with ambulation. 02/21/24: Pt gait trains 1231 feet in 6 minutes LTG Duration Progressed Assessment Summary Assessment Pt con't to report left lateral thigh to knee tingling and burning and also symptoms in the left hip that has been going on for about 2 weeks. Recommend follow-up with PCP. This is her last PT visit and she progressed towards all PT goals since starting PT. Pain rolling over in the morning is better. She has symptoms at night. Will d/c PT and recommend return to doctor. Pt also states she has B LE edema and history of CHF and states she has not seen a electronic scanner operator in years as PCP manages BP. Increased edema may possibly affects symptomology. Pt requests shorter appointment and states she does not need HEP review and manual PT was not particularly helpful.
== END 2024-03-20 10:05 | disposition home or self-care (01) ==
LOC: PHYS 13:00
PROVIDERS: Family Provider Family Medicine; PCP Family Medicine; Referring Provider Family Medicine; Visit Provider Family Medicine
DX: M54.16 Radiculopathy, lumbar region (principal); M17.11 Unilateral primary osteoarthritis, right knee
CPT/HCPCS: 97110; 97112; 97116; 97140; 97161; 97535

== ENCOUNTER → 2024-06-10 07:33 | Outpatient (CLI) | payer MEDICARE, SELFPAY ==
--- NOTE | 2024-06-10 07:34 | DI.US.S_ITS ---
PROCEDURE: US CAROTID DOPPLER BI INDICATIONS: RIGHT CAROTID BRUIT TECHNIQUE: Color and pulse Doppler interrogation was performed of both carotid systems, with image documentation and velocity measurements. COMPARISON: [facility], , CAROTID ARTERY DOPPLER BILAT, 02/27/2014, 12:56. FINDINGS: Stenosis calculations are based on SRU (Society of Radiologists in Ultrasound) criteria. Right side: Brachial blood pressure: 144/77 mm Hg. Common carotid artery peak systolic velocity: 85 cm/sec. Internal carotid artery peak systolic velocity: 74 cm/sec. Internal carotid artery end diastolic velocity: 10 cm/sec. External carotid artery peak systolic velocity: 81 cm/sec. ICA/CCA peak systolic ratio: 0.9 . Renteria scale imaging description: Mild plaque at bifurcation Percent internal carotid artery stenosis: Less than 50% . Vertebral artery: Flow direction is antegrade. Left side: Brachial blood pressure: 147/71 mm Hg. Common carotid artery peak systolic velocity: 86 cm/sec. Internal carotid artery peak systolic velocity: 99 cm/sec. Internal carotid artery end diastolic velocity: 20 cm/sec. External carotid artery peak systolic velocity: 84 cm/sec. ICA/CCA peak systolic ratio: 1.2 . Renteria scale imaging description: Mild plaque at the bifurcation Percent internal carotid artery stenosis: Less than 50% . Vertebral artery: Flow direction is antegrade. IMPRESSION: 1. In the right carotid artery, there is less than 50% stenosis based on peak systolic velocity criteria. 2. In the left carotid artery, there is less than 50% stenosis based on peak systolic velocity criteria. 3. Antegrade vertebral arteries. Dictated by: Billie David M.D. on 06/10/2024 at 14:34 Approved by: Billie David M.D. on 06/10/2024 at 14:35
== END ==
PROVIDERS: Family Provider Family Medicine; PCP Family Medicine; Referring Provider Internal Medicine; Visit Provider Internal Medicine
DX: R09.89 Other specified symptoms and signs involving the circulatory and respiratory systems (principal); I65.23 Occlusion and stenosis of bilateral carotid arteries
CPT/HCPCS: 93880

== ENCOUNTER → 2024-06-28 14:44 | Outpatient (CLI) | payer MEDICARE, SELFPAY ==
--- NOTE | 2024-06-28 14:45 | DI.ECHO.S_ITS ---
[facility] : : [address] : : [place] : : [id number] : : Phone: [phone] Echocardiogram Report + + :Name: BRAEDEN BARRIOS Study Date: 06/28/2024 Height: 60 in : :[facility] ReadingLocation: Weight: 175 lb : : Gender: Female BSA: 1.8 m2 : :: 1940 Age: 84 yrs BP: 184/106 mmHg: :Reason For Study: CHRONIC HEART FAILURE : :Ordering Physician: KEYSHA CHAWLA Performed By: Casey Lofton : :Referring: KEYSHA CHAWLA : + + Interpretation Summary 1. The left ventricular contractility is normal. Estimate ejection fraction is greater than 60% with no segmental wall motion abnormalities. Mild concentric LVH. Grade 1 diastolic dysfunction. 2. The right ventricular contractility is normal. 3. Mild left atrial enlargement. All other cardiac chambers are of normal size. 4. No significant valvular abnormalities. 5. No obvious intracardiac shunts. 6. No obvious intracardiac masses nor thrombi. 7. No hemodynamically significant pericardial effusion. 8. Normal right-sided filling pressures. Conclusion: Normal biventricular systolic function with no significant valvular abnormalities. Procedure: A two-dimensional transthoracic echocardiogram with color flow and Doppler was performed. The study quality was technically adequate. Comparison is made with the echocardiogram of 07/03/2019. The patient was in normal sinus rhythm during the exam. Left Ventricle: The left ventricle is normal in size. Left ventricular wall thickness is mildly increased. There is no ventricular septal defect visualized. The ejection fraction is estimated to be 60-65%. There are no focal wall motion abnormalities. Diastolic parameters suggest a relaxation abnormality of the left ventricle, consistent with probable normal filling pressures. Right Ventricle: The right ventricle is normal size. The right ventricular systolic function is normal. Atria: The left atrium is mildly dilated. Right atrial size is normal. There is no Doppler evidence for an atrial septal defect. Mitral Valve: There is mild mitral annular calcification. The mitral valve leaflets appear normal. There is no evidence of stenosis, fluttering, or prolapse. There is trace mitral regurgitation. Aortic Valve: The aortic valve is trileaflet. The aortic valve opens well. There is trace aortic regurgitation. Tricuspid Valve: The tricuspid valve is not well visualized, but is grossly normal. There is a trace or physiologic amount of tricuspid regurgitation. The right ventricular systolic pressure is estimated to be at least 26 mmHg based on an estimated right atrial pressure of 8 mm Hg. Pulmonic Valve: The pulmonic valve is not well seen, but is grossly normal. There is trace pulmonic regurgitation. Great Vessels: The aortic root is normal size. The dimensions of the ascending aorta are normal. The pulmonary artery is normal size. The IVC is dilated (diameter is greater than 2.1 cm) yet it collapses greater than 50% with a sniff. This suggests a right atrial pressure of 8 mm Hg. Pericardium/ Pleura There is no pericardial effusion. There is no pleural effusion. MMode/2D Measurements & Calculations LVIDd: 4.2 cm LVOT diam: 1.9 cm LVIDs: 2.4 cm Ao root diam: 3.0 cm FS: 43.6 % asc Aorta Diam: 3.5 cm EPSS: 0.62 cm IVSd: 1.2 cm LVPWd: 1.1 cm LV mcgarry. diameter/BSA (cm/m^2): 2.4 LV sys. diameter/BSA (cm/m^2): 1.3 LA A2 area: 19.1 cm2 RA long axis: 4.7 cm LA A4 area: 20.7 cm2 RA area: 11.8 cm2 LA length (vol): 5.9 cm RA vol: 25.3 ml LA vol: 57.0 ml RA : 14.4 ml/m2 LA vol index: 32.3 ml/m2 IVC diam: 2.1 cm RVD1 (basal): 3.7 cm RVD2 (mid): 3.0 cm TAPSE: 1.5 cm Doppler Measurements & Calculations Ao V2 max: 137.7 cm/sec LVOT Max Asaf: 100.8 cm/sec Ao V2 mean: 97.9 cm/sec LV V1 max P.1 mmHg Ao max P.6 mmHg LV V1 VTI: 26.0 cm Ao mean P.2 mmHg LUCILLE(I,D): 2.6 cm2 Ao V2 VTI: 29.1 cm LUCILLE(V,D): 2.1 cm2 sev ratio: 0.89 LUCILLE indexed to BSA (cm^2/m^2): 1.5 MV E max asfa: 93.3 cm/sec TR max asaf: 215.6 cm/sec MV A max asaf: 87.5 cm/sec TR max P.6 mmHg MV E/A: 1.1 PA V2 max: 105.9 cm/sec Med Peak E' Asaf: 5.0 cm/sec PA V2 mean: 72.3 cm/sec E/E' med: 18.5 PA mean P.4 mmHg Lat Peak E' Asaf: 5.7 cm/sec PA pr(Accel): 31.0 mmHg E/E' lat: 16.4 E/e' average: 17.5 MV dec time: 0.17 sec SV(LVOT): 75.4 ml Reading Physician:BARBARA
== END ==
PROVIDERS: Family Provider Family Medicine; PCP Family Medicine; Referring Provider Internal Medicine; Visit Provider Internal Medicine
DX: I34.81 Nonrheumatic mitral (valve) annulus calcification (principal); I50.32 Chronic diastolic (congestive) heart failure
CPT/HCPCS: 93306

== ENCOUNTER 2025-02-19 11:15 | Emergency (ER) | payer MEDICARE, SELFPAY ==
[2025-02-19] VITALS (10 sets, daily range): BP systolic 149–209; BP diastolic 67–95; PULSE 69–102; RESP 15–21; TEMP 36.5; O2SAT 86–99; BMI 31.6
--- NOTE | 2025-02-19 11:28 | DI.RAD.S_ITS ---
PROCEDURE: XR CHEST 1V
--- NOTE | 2025-02-19 11:28 | EKG_ITS ---
[facility]
--- NOTE | 2025-02-19 11:29 | ED_ITS ---
HPI - Chest Pain
--- NOTE | 2025-02-19 11:29 | ED.CHESTPAIN ---
HPI - Chest Pain General Chief Complaint: Chest Pain Stated Complaint: Pain under left breast Time Seen by Provider: 02/19/25 11:28 Source: patient, RN notes reviewed and old records reviewed Mode of arrival: Ambulatory Limitations: no limitations Limitations: no limitations History of Present Illness HPI narrative: 85-year-old female history of hypertension, CHF who presents with a complaint of left chest pain underneath her left breast radiates around towards the back and a little bit up towards her neck. She notes Monday she was doing yoga she moved into a position that she felt like she possibly hurt her ribs that has been present but states pain got a lot worse today while she was not hitting with a group of friends. She states this feels a little bit different little bit more underneath the left breast. She states it is pleuritic. She denies fevers or chills. No cold cough or congestion. No nausea or vomiting. No diarrhea or constipation or other GI or urinary symptoms. She has chronic swelling in her lower extremities but no new changes to that. She states she takes spironolactone, losartan, torsemide, she denies any aspirin or daily blood thinners. She took 2 tablets of Tylenol shortly before arriving. She has a reported allergy to sulfa. No tobacco, alcohol or recreational drugs. Her primary care is Dr. Zarco, her previous PCP is leaving Dr. Gonzalez. Related Data Home Medications ?Medication ?Instructions ?Recorded ?Confirmed losartan 100 mg tablet 100 mg PO DAILY 02/04/20 12/31/23 rosuvastatin 5 mg tablet 2.5 mg PO DAILY 02/04/20 10/23/20 torsemide 10 mg tablet 10 mg PO DAILY 02/04/20 12/31/23 carvedilol 3.125 mg tablet 3.125 mg PO ONCE 10/23/20 10/23/20 ferrous sulfate 325 mg (65 mg 325 mg PO Q OTHER DAY 10/23/20 10/23/20 iron) tablet Allergies Allergy/AdvReac Type Severity Reaction Status Date / Time Sulfa (Sulfonamide Allergy Verified 12/31/23 10:46 Antibiotics) Review of Systems Review of Systems ROS Unobtainable: All systems reviewed & are unremarkable except as noted in HPI and below Patient History 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 RESPIRATORY: Breath sounds equal bilaterally, no wheezes rales or rhonchi. Patient has tenderness over the left ribs in the lateral 5th 6th rib. Normal warmth, no erythema no ecchymosis appreciated. Patient is conversant. ABDOMEN: Soft, nontender. Normoactive bowel sounds all 4 quadrants. No guarding or rebound, rigidity, no mass : No CVA tenderness EXTREMITIES: Normal range of motion, mild edema bilateral lower extremities. Neurovascularly intact NEUROLOGICAL: Cranial nerves II through XII grossly intact. Moving all extremities SKIN: Warm, dry, no petechiae, no rashes or lesions. Initial Vital Signs Initial Vital Signs: Vital Signs Temperature 97.7 F 02/19/25 11:21 Pulse Rate 102 H 02/19/25 11:21 Respiratory Rate 18 02/19/25 11:21 Blood Pressure 209/95 H 02/19/25 11:21 Pulse Oximetry 98 02/19/25 11:21 Oxygen Delivery Method Room Air 02/19/25 11:21 Course Orders Ordered: ED Orders 02/19/25 11:28 XR chest 1V Stat EKG-12 Lead Stat 02/19/25 11:40 Complete Blood Count AUTO DIFF Stat Comprehensive Metabolic Panel Stat [facility] Creatine Kinase MB Routine Lipase Stat Magnesium Stat NT-proBNP (BNP-Adult 18+) Stat Troponin I Stat 02/19/25 13:01 Trop I [Troponin I] Stat 02/19/25 13:46 EKG-12 Lead Routine EKG-12 Lead Routine Discontinued Medications Acetaminophen (Ofirmev) 1,000 mg in 100 mls @ 400 mls/hr IV NOW ONE Stop: 02/19/25 13:43 Last Admin: 02/19/25 14:11 Dose: Not Given Documented By: SGF Ketorolac Tromethamine (Ketorolac 30 Mg/Ml Vial) 15 mg IV NOW ONE Stop: 02/19/25 14:00 Last Admin: 02/19/25 14:01 Dose: 15 mg Documented By: JAMES Morphine Sulfate (Morphine 2 Mg/Ml Inj) 2 mg IV NOW ONE Stop: 02/19/25 11:29 Last Admin: 02/19/25 11:45 Dose: Not Given Documented By: JAMES Ondansetron HCl (Ondansetron 4 Mg/2 Ml Inj) 4 mg IV NOW ONE Stop: 02/19/25 11:29 Last Admin: 02/19/25 11:45 Dose: Not Given Documented By: JAMES Vital Signs Vital signs: Vital Signs - 8 hr 02/19/25 11:21 02/19/25 11:38 02/19/25 11:38 Temperature 97.7 F Pulse Rate 102 H 91 H Respiratory Rate 18 15 Blood Pressure 209/95 H 208/91 H Pulse Oximetry 98 86 L Oxygen Delivery Method Room Air 02/19/25 12:00 02/19/25 12:01 02/19/25 12:01 Temperature Pulse Rate 75 74 Respiratory Rate 21 17 Blood Pressure 149/67 H Pulse Oximetry 99 98 Oxygen Delivery Method 02/19/25 12:30 02/19/25 12:30 02/19/25 13:00 Temperature Pulse Rate 71 70 Respiratory Rate 17 15 Blood Pressure 154/68 H Pulse Oximetry 98 98 Oxygen Delivery Method 02/19/25 13:00 02/19/25 13:30 02/19/25 13:30 Temperature Pulse Rate 69 Respiratory Rate 18 Blood Pressure 150/69 H 166/70 H Pulse Oximetry 97 Oxygen Delivery Method 02/19/25 14:00 02/19/25 14:30 02/19/25 14:30 Temperature Pulse Rate 74 72 Respiratory Rate 16 15 Blood Pressure 159/70 H Pulse Oximetry 99 99 Oxygen Delivery Method Room Air 02/19/25 14:41 Temperature Pulse Rate Respiratory Rate Blood Pressure Pulse Oximetry 96 Oxygen Delivery Method Room Air MDM - Chest Pain Lab Data 02/19/25 11:40 02/19/25 11:40 Labs: Lab Results 02/19/25 02/19/25 Range/Units 11:40 13:01 WBC 8.2 (4.5-11.0) X10^3/uL RBC 5.03 (4.0-5.2) X10^6/uL Hgb 14.1 (12.0-16.0) g/dL Hct 42.2 (36-46) % MCV 84.0 (80-100) fL MCH 28.1 (26-34) PG MCHC 33.4 (30-36) % RDW 15.0 H (11.6-14.8) % Plt Count 359 (150-400) X10^3/uL Neut % (Auto) 67.4 (50-75) % Lymph % (Auto) 23.3 L (25-40) % Russell % (Auto) 7.3 (3-14) % Eos % (Auto) 1.2 L (2-4) % Baso % (Auto) 0.8 (0-2) % Neut # (Auto) 5500 (7022-2001) /uL Lymph # (Auto) 1900 (8467-8338) /uL Russell # (Auto) 600 (0-900) /uL Eos # (Auto) 100 (0-450) /uL Baso # (Auto) 100 (0-100) /uL Sodium 137 (137-145) mmol/L Potassium 4.3 (3.4-5.1) mmol/L Chloride 103 (98-107) mmol/L Carbon Dioxide 25 (22-32) mmol/L BUN 17 (7-17) mg/dL Creatinine 1.05 H (0.52-1.04) mg/dL Estimated GFR 52 L (>60) mL/min BUN/Creatinine Ratio 16.2 (6-22) Glucose 109 H (70-99) mg/dL Calcium 10.0 (8.4-10.2) mg/dL Magnesium 2.0 (1.6-2.3) mg/dL Total Bilirubin 0.5 (0.2-1.3) mg/dL AST 33 (14-36) IU/L ALT 15 (<35) IU/L Alkaline Phosphatase 139 H (38-126) U/L Troponin I < 0.012 < 0.012 (0.01-0.034) ng/mL NT-Pro-B Natriuret Pep 96 (<450) pg/mL Total Protein 8.3 H (6.3-8.2) g/dL Albumin 4.7 (3.5-5.0) g/dL Globulin 3.6 (1.7-4.1) g/dL Albumin/Globulin Ratio 1.3 (1.0-2.8) Lipase 108 (23-300) U/L [facility] Narrative Medical decision making narrative: EKG, sinus rhythm rate of 91 TN 192 QRS is 76 QTC of 423, no acute ST-elevation depression noted. No prior for comparison. Repeat EKG from 1346 shows sinus rhythm first-degree AV block rate of 70 TN 212 QRS is 76 QTC of 432, no acute ST changes depression appreciated patient has a little bit of change in V2. Chest x-ray portable chest with a normal limits for age. Labs normal white count, hemoglobin and platelets, chemistries are overall appropriate creatinine is 1.05, glucose is 109 LFTs are normal troponins less than 0.012 with a BNP of 96 and a lipase of 108. Repeat troponins less than 0.012 85-year-old female who has had left-sided chest pain after doing yoga has reproducible pain on exam, no obvious rib fractures but I suspect she has had an injury to her chest wall or ribs. Her cardiac workup is negative. Chest x-ray shows no acute change. Patient was initially quite hypertensive but improved here in the department without any interventions. Patient received Zofran and Toradol. Incentive spirometer with teaching and discharge home. Patient defers anything stronger than acetaminophen for home. Discussed return precautions, signs and symptoms to watch for. Discharge Plan Departure Patient Disposition: Home Clinical Impression: Left-sided chest pain Instructions: DI for Rib Fracture Activity Restrictions/Additional Instructions: Please follow up with your physician, I suspect you have a rib fracture that is nondisplaced or have caused some injury to that area. Your GFR today is 52 with a creatinine of 1.05 You may increase your activity as tolerated. You can take acetaminophen up to a 1000 mg every 6 hours as needed for pain. Use incentive spirometer once hourly while awake. Please return if you develop new or worsening symptoms, new shortness of breath, coughing up blood, any lightheadedness or passing out, rapidly worsening pain, new swelling in extremities or other new or concerning changes. Prescriptions: No Action carvedilol 3.125 mg tablet 3.125 mg PO ONCE Patient Comments: 1 tab daily Rx Instructions: must administer with a meal/food losartan 100 mg tablet 100 mg PO DAILY rosuvastatin 5 mg tablet 2.5 mg PO DAILY torsemide 10 mg tablet 10 mg PO DAILY ferrous sulfate 325 mg (65 mg iron) tablet 325 mg PO Q OTHER DAY Referrals: Zia Zarco MD [Primary Care Provider, Family Practice] Stand Alone Forms: Patient Portal/API
--- NOTE | 2025-02-19 11:47 | PC.NURSE ---
Pt reports pain under L breast that radiates to her L side of neck. Denies wanting any pain meds
[2025-02-19 11:54] LABS: Add Manual Diff / Slide Review NO; Hematocrit 42.2 % (36-46); Hemoglobin 14.1 g/dL (12.0-16.0); Lymphocytes Absolute Auto 1900 /uL (1100-4500); Mean Corpuscular HGB Conc 33.4 % (30-36); Mean Corpuscular Hemoglobin 28.1 PG (26-34); Mean Corpuscular Volume 84.0 fL (80-100); Platelet Count 359 X10^3/uL (150-400)
[2025-02-19 12:05] LABS: Alanine Aminotransferase 15 IU/L (<35); Albumin 4.7 g/dL (3.5-5.0); Albumin Globulin Ratio 1.3 (1.0-2.8); Alkaline Phosphatase 139 U/L (38-126); Blood Urea Nitrogen 17 mg/dL (7-17); Calcium 10.0 mg/dL (8.4-10.2); Carbon Dioxide 25 mmol/L (22-32); Chloride 103 mmol/L (98-107); Estimated Glomerular Filt Rate 52 mL/min (>60); Globulin 3.6 g/dL (1.7-4.1); Glucose 109 mg/dL (70-99); HEMOLYSIS < 15 (0-50); Lipase 108 U/L (23-300); Magnesium 2.0 mg/dL (1.6-2.3); Potassium 4.3 mmol/L (3.4-5.1); Sodium 137 mmol/L (137-145); Total Protein 8.3 g/dL (6.3-8.2)
[2025-02-19 12:16] LABS: NT-proBNP (BNP-Adult 18+) 96 pg/mL (<450); Troponin I < 0.012 ng/mL (0.01-0.034)
[2025-02-19 13:40] LABS: Troponin I < 0.012 ng/mL (0.01-0.034)
[2025-02-19] MEDS: KETOROLAC 30 MG/ML VIAL 15 MG IV (14:01)
[2025-02-20 07:09] LABS: Labcorp Creatine Kinase MB 2.7 ng/mL (0.0-5.3)
== END 2025-02-19 14:46 | disposition home or self-care (01) ==
PROVIDERS: Emergency Provider Emergency Medicine; Family Provider Family Medicine; PCP Family Medicine
DX: R07.9 Chest pain, unspecified (principal); I11.0 Hypertensive heart disease with heart failure; I50.9 Heart failure, unspecified
CPT/HCPCS: 36415; 71045; 80053; 82553; 83690; 83735; 83880; 84484; 85025; 93005; 96374; 99284; J1885